=== PATIENT | female | born 1980 | race Caucasian/White ===

== ENCOUNTER 2021-03-26 08:58 | Emergency (ER) | payer MEDICARE ==
--- NOTE | 2021-03-26 09:02 | ERPHSYRPT ---
- History of Present Illness Time Seen by Provider: 03/26/21 09:02 Source: patient Exam Limitations: no limitations Physician History: This is a 41-year-old white female who gets UTIs frequently. She presents with 1 to 2-day history of worsening dysuria. She has had no nausea vomiting or diarrhea. She had no fevers. She denies chest pain and she denies shortness of breath. Timing/Duration: day(s) (1-2) Activites at Onset: none Quality: burning Onset Location: suprapubic Pain Radiation: none Severity of Pain-Max: mild Severity of Pain-Current: mild Prior abdominal problems: none Sexual intercourse history: non-contributory Allergies/Adverse Reactions: latex Allergy (Verified 03/26/21 09:19) Sulfa (Sulfonamide Antibiotics) Allergy (Verified 03/26/21 09:19) sulfamethoxazole [From Bactrim] Allergy (Verified 03/26/21 09:18) trimethoprim [From Bactrim] Allergy (Verified 03/26/21 09:18) Home Medications: Gabapentin 400 mg [Neurontin 400 MG] 2 ea DAILY 03/26/21 [History] Losartan Potassium 50 mg [Cozaar 50 MG] 50 mg PO DAILY 03/26/21 [History] Metformin HCl 500 mg [Glucophage 500 MG] 2 ea DAILY 03/26/21 [History] Travel Risk - International Travel Have you traveled outside of the country in past 3 weeks: No - Coronavirus Screening Are you exhibiting any of the following symptoms?: No Close contact with a COVID-19 positive Pt in past 14-21 Days: No - Review of Systems Constitutional: No Symptoms Eyes: No Symptoms Ears, Nose, & Throat: No Symptoms Respiratory: No Symptoms Cardiac: No Symptoms Abdominal/Gastrointestinal: No Symptoms Genitourinary Symptoms: Dysuria Musculoskeletal: No Symptoms Skin: No Symptoms Neurological: No Symptoms Psychological: No Symptoms Endocrine: No Symptoms Hematologic/Lymphatic: No Symptoms Immunological/Allergic: No Symptoms All Other Systems: Reviewed and Negative - Past Medical History Pertinent Past Medical History: Yes - Past Surgical History Past Surgical History: Yes - Nursing Vital Signs Nursing Vital Signs: Initial Vital Signs Temperature 97.2 F 03/26/21 09:13 Pulse Rate 57 L 03/26/21 09:13 Respiratory Rate 18 03/26/21 09:13 Blood Pressure 134/74 03/26/21 09:13 O2 Sat by Pulse Oximetry 100 03/26/21 09:13 Pain Scale Pain Intensity 4 - Physical Exam General Appearance: no apparent distress, alert, anxiety Eye Exam: PERRL/EOMI, eyes nml inspection Ears, Nose, Throat Exam: normal ENT inspection, moist mucous membranes Neck Exam: normal inspection, non-tender, supple, full range of motion Respiratory Exam: normal breath sounds, lungs clear, airway intact, No chest tenderness, No respiratory distress Cardiovascular Exam: regular rate/rhythm, normal heart sounds, normal peripheral pulses Gastrointestinal/Abdomen Exam: soft, normal bowel sounds, No tenderness Pelvic Exam: not done Rectal Exam: not done Back Exam: normal inspection, normal range of motion, No CVA tenderness, No vertebral tenderness Extremity Exam: normal inspection, normal range of motion, pelvis stable Neurologic Exam: alert, oriented x 3, cooperative, 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 as tested, normal mood/affect, nml cerebellar function, nml station & gait, sensation nml Skin Exam: normal color, warm, dry Lymphatic Exam: No adenopathy SpO2 Interpretation: normal O2 Delivery: Room Air - Course Nursing assessment & vital signs reviewed: Yes Ordered Tests: Active Orders 24 hr Category Date Time Status CULTURE,URINE Stat Lab 03/26/21 09:13 Received HCG,QUALITATIVE URINE Stat Lab 03/26/21 09:13 Completed UA W/RFX UR CULTURE Stat Lab 03/26/21 09:13 Completed Lab/Rad Data: Laboratory Results 03/26/21 03/26/21 Range/Units 09:13 09:13 Urine Color JACKIE (YELLOW) Urine Appearance CLOUDY (CLEAR) Urine pH 6.0 (5-6) Ur Specific [place] 1.042 (1.005-1.025) Urine Protein 100 (Negative) Urine Ketones NEGATIVE (NEGATIVE) Urine Blood SMALL (0-5) Lawrence/ul Urine Nitrite POSITIVE (NEGATIVE) Urine Bilirubin NEGATIVE (NEGATIVE) Urine Urobilinogen 2 (0-1) mg/dL Ur Leukocyte Esterase NEGATIVE (NEGATIVE) Urine WBC (Auto) 6-10 (0-5) /HPF Urine RBC (Auto) 16-25 (0-2) /HPF U Epithel Cells (Auto) RARE (FEW) /HPF Urine Bacteria (Auto) MANY (NEGATIVE) /HPF Urine Mucus (Auto) SLIGHT (NEGATIVE) /HPF Urine Culture Reflexed YES (NO) Urine Glucose >=500 (NEGATIVE) mg/dL Urine HCG, Qual NEGATIVE (Negative) - Progress Progress: unchanged Air Movement: good Blood Culture(s) Obtained: No Antibiotics given: No Counseled pt/family regarding: lab results, diagnosis, need for follow-up - Departure Departure Disposition: Home Clinical Impression: UTI (urinary tract infection) Condition: Stable Critical Care Time: No Referrals: DOCTOR,NO FAMILY [Primary Care Provider] - Additional Instructions: Drink plenty of fluids. Use Tylenol and ibuprofen for pain control and fever control if you are not allergic to that medication. Follow-up with your primary care physician for persistent symptoms. Prescriptions: Ciprofloxacin [Cipro 500 MG] 500 mg PO BID #14 tablet
[2021-03-26 10:13] LABS: Appearance CLOUDY (CLEAR); Bacteria MANY /HPF (NEGATIVE); Bilirubin NEGATIVE (NEGATIVE); Blood SMALL Ery/ul (0-5); Epithelial Cells RARE /HPF (FEW); Glucose >=500 mg/dL (NEGATIVE); Ketones NEGATIVE (NEGATIVE); Leukocyte Esterase NEGATIVE (NEGATIVE); Mucus SLIGHT /HPF (NEGATIVE); Nitrite POSITIVE (NEGATIVE); Protein,Urine Dip 100 (Negative); Specific Gravity 1.042 (1.005-1.025); Urobilinogen 2 mg/dL (0-1)
[2021-03-26 10:47] VITALS: BP 143/83; PULSE 52; O2SAT 98
== END 2021-03-26 10:51 | disposition home or self-care (01) ==
LOC: ED 08:58
DX: N39.0 Urinary tract infection, site not specified (principal)
CPT/HCPCS: 81001; 84703; 87086; 99283

== ENCOUNTER 2022-02-23 13:54 | Emergency (ER) | payer MEDICARE ==
[2022-02-23] MEDS ORDERED: Zofran 4 MG/2 ML VIAL ONE (14:21)
[2022-02-23] MEDS ORDERED: Hydromorphone 1 mg/ml Injection ONE ×2 (14:21→15:33)
[2022-02-23] MEDS ORDERED: Sodium Chloride 0.9% 1000 ML 1,000 ML ONE (14:21)
[2022-02-23] MEDS: Hydromorphone 1 mg/ml Injection IV ONE ×2 (14:23→15:34)
[2022-02-23] MEDS: Sodium Chloride 0.9% 1000 ML 1,000 ML IV STA (14:23)
[2022-02-23] MEDS: Zofran 4 MG/2 ML VIAL IV ONE (14:23)
[2022-02-23 14:55] LABS: Bacteria RARE /HPF (NEGATIVE); Epithelial Cells RARE /HPF (FEW); Mucus SLIGHT /HPF (NEGATIVE)
[2022-02-23 14:56] LABS: Appearance CLEAR (CLEAR); Bilirubin NEGATIVE (NEGATIVE); Glucose 100 mg/dL (NEGATIVE); Ketones NEGATIVE (NEGATIVE); Nitrite NEGATIVE (NEGATIVE); Protein,Urine Dip 30 (Negative); RBC TRACE-LYSED Ery/ul (0-5); Specific Gravity >=1.030 (1.005-1.025); Urine Cultured Indicated? YES; Urobilinogen 1 mg/dL (0-1)
[2022-02-23 14:57] LABS: Dipstick done @ ? MAIN LAB
[2022-02-23 15:12] LABS: Amphetamine,Urine NEGATIVE (NEGATIVE); Barbiturate,Urine NEGATIVE (NEGATIVE); Benzodiazepine,Urine NEGATIVE (NEGATIVE); Cocaine,Urine NEGATIVE (NEGATIVE); Methadone,Urine NEGATIVE (NEGATIVE); Opiate,Urine NEGATIVE (NEGATIVE); PCP,Urine NEGATIVE (NEGATIVE); THC,Urine POSITIVE (NEGATIVE)
--- NOTE | 2022-02-23 15:24 | ERPHSYRPT ---
- History of Present Illness Time Seen by Provider: 02/23/22 14:10 Historian: patient Exam Limitations: no limitations Patient Subjective Stated Complaint: PT states "I have an ostomy and nothing has come out of in in the past two weeks." Triage Nursing Assessment: Pt presented alert and oriented X3, skin pwd Pt ambulates with an upright gait. PT uses cane. PT has ostomy. Pt in no apparent respiratory distress. Physician History: Patient is a 41-year-old white female who presents with a concern about the malfunction of her colostomy. She has a colostomy because as she says "premature " apparently its been a lifelong presents. She has had 1 episode at least in the past where she got bowel obstruction and was hospitalized for a prolonged period. Her PCP was seen today they sent her in because they could not appreciate any bowel sounds she seemed somewhat distended and there been no apparent output from the colostomy for 2 weeks. She has had some nausea and vomiting and she has abdominal pain. Patient recently moved to the area. Timing/Duration: week(s) (2) Activities at Onset: none Quality: aching, cramping Abdominal Pain Onset Location: generalized abdomen Severity of Pain-Max: moderate Severity of Pain-Current: moderate Modifying Factors: Improves With: movement, palpation Associated Symptoms: nausea, vomiting Previous symptoms: same symptoms as today Allergies/Adverse Reactions: latex Allergy (Verified 03/26/21 09:19) Sulfa (Sulfonamide Antibiotics) Allergy (Verified 03/26/21 09:19) sulfamethoxazole [From Bactrim] Allergy (Verified 03/26/21 09:18) trimethoprim [From Bactrim] Allergy (Verified 03/26/21 09:18) Home Medications: Gabapentin [Neurontin ] 2 ea PO DAILY 03/26/21 [History] Losartan Potassium 50 mg [Cozaar 50 MG] 50 mg PO DAILY 03/26/21 [History] Metformin HCl 500 mg [Glucophage 500 MG] 2 ea PO DAILY 03/26/21 [History] Hydrochlorothiazide 25 mg [hydroDIURIL 25 MG] 25 mg PO DAILY 02/23/22 [History] Insulin Glargine,Hum.rec.anlog [Lantus] 100 unit SQ 02/23/22 [History] Ondansetron [Ondansetron Odt ] 4 mg PO DAILY PRN 02/23/22 [History] Hx Tetanus, Diphtheria Vaccination/Date Given: No Hx Influenza Vaccination/Date Given: Yes Hx Pneumococcal Vaccination/Date Given: No Immunizations Up to Date: Yes Travel Risk - International Travel Have you traveled outside of the country in past 3 weeks: No - Coronavirus Screening Are you exhibiting any of the following symptoms?: No Close contact with a COVID-19 positive Pt in past 14-21 Days: No - Vaccine Status Have you recieved a Covid-19 vaccination: Yes 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: [employer] - Review of Systems Constitutional: No Fever, No Chills Eyes: No Symptoms Ears, Nose, & Throat: No Symptoms Respiratory: No Cough, No Dyspnea Cardiac: No Chest Pain, No Edema, No Syncope Abdominal/Gastrointestinal: Abdominal Pain, Nausea, Vomiting, No Diarrhea Genitourinary Symptoms: No Dysuria Musculoskeletal: No Back Pain, No Neck Pain Skin: No Rash Neurological: No Dizziness, No Focal Weakness, No Sensory Changes Psychological: No Symptoms Endocrine: No Symptoms All Other Systems: Reviewed and Negative - Past Medical History Pertinent Past Medical History: Yes Neurological History: Peripheral Neuropathy Cardiac History: Hypertension Endocrine Medical History: Diabetes Type II History: Other Female Reproductive Disorders: Ovarian Cancer Other Medical History: colotomy from - Past Surgical History Past Surgical History: Yes Gastrointestinal: Other Female Surgical History: Hysterectomy Other Surgical History: colostomy - Social History Smoking Status: Current every day smoker Exposure to second hand smoke: Yes Drug Use: marijuana Patient Lives Alone: No - Female History Hx Last Menstrual Period: partial hysterectomy Hx Now: No - Nursing Vital Signs Nursing Vital Signs: Initial Vital Signs Temperature 97.1 F 02/23/22 14:00 Pulse Rate 69 02/23/22 14:00 Respiratory Rate 20 02/23/22 14:00 Blood Pressure 164/103 02/23/22 14:00 O2 Sat by Pulse Oximetry 96 02/23/22 14:00 Pain Scale Pain Intensity 4 - Physical Exam General Appearance: moderate distress, alert Eye Exam: PERRL/EOMI, eyes nml inspection Ears, Nose, Throat Exam: normal ENT inspection, pharynx normal, moist mucous membranes Neck Exam: normal inspection, non-tender, supple, full range of motion Respiratory Exam: normal breath sounds, lungs clear, No respiratory distress Cardiovascular Exam: regular rate/rhythm, normal heart sounds Gastrointestinal/Abdomen Exam: tenderness, guarding, rebound, other (Colostomy with no apparent stool in the bag), No soft, No normal bowel sounds, No mass Pelvic Exam: not done Rectal Exam: deferred Back Exam: normal inspection, normal range of motion, No CVA tenderness, No vertebral tenderness Extremity Exam: normal inspection, normal range of motion, pelvis stable Neurologic Exam: alert, oriented x 3, cooperative, normal mood/affect, nml cerebellar function, sensation nml, No motor deficits Skin Exam: normal color, warm, dry SpO2 Interpretation: normal SpO2: 96 O2 Delivery: Room Air - Course Nursing assessment & vital signs reviewed: Yes - CT Exams Abdomen/Pelvis CT Interpretation: Other (CT scan of the abdomen and pelvis shows some moderate fecal stasis otherwise the CT was negative.) Ordered Tests: Active Orders 24 hr Category Date Time Status IV Insertion STAT Care 02/23/22 14:12 Active ABDOMEN AND PELVIS W CONTRAST [CT] Stat Exams 02/23/22 14:13 Completed AMYLASE Stat Lab 02/23/22 15:19 Completed CBC W DIFF Stat Lab 02/23/22 15:19 Completed CMP Stat Lab 02/23/22 15:19 Completed CULTURE,URINE Stat Lab 02/23/22 Received LIPASE Stat Lab 02/23/22 15:19 Completed Lactic Acid Stat Lab 02/23/22 14:12 Completed Lactic Acid Stat Lab 02/23/22 16:28 Received UA W/RFX CULTURE Stat Lab 02/23/22 Completed Urine Triage Profile Stat Lab 02/23/22 14:41 Completed Medication Summary Discontinued Medications Generic Name Dose Route Start Last Admin Trade Name Rafael PRN Reason Stop Dose Admin Hydromorphone HCl 1 mg 02/23/22 14:12 02/23/22 14:23 Hydromorphone 1 Mg/1ml Inj 1 Mg/Ml Syringe IV 02/23/22 14:13 1 mg STAT ONE Administration Hydromorphone HCl Confirm 02/23/22 14:21 Hydromorphone 1 Mg/1ml Inj 1 Mg/Ml Syringe Administered 02/23/22 14:22 Dose 1 mg .ROUTE .STK-MED ONE Hydromorphone HCl 1 mg 02/23/22 15:33 02/23/22 15:34 Hydromorphone 1 Mg/1ml Inj 1 Mg/Ml Syringe IV 02/23/22 15:34 1 mg STAT ONE Administration Hydromorphone HCl Confirm 02/23/22 15:33 Hydromorphone 1 Mg/1ml Inj 1 Mg/Ml Syringe Administered 02/23/22 15:34 Dose 1 mg .ROUTE .STK-MED ONE Sodium Chloride 1,000 mls @ 999 mls/hr 02/23/22 14:12 02/23/22 15:29 Sodium Chloride 0.9% 1000 Ml IV 02/23/22 15:12 Infused .Q1H1M STA Infusion Sodium Chloride Confirm 02/23/22 14:21 Sodium Chloride 0.9% 1000 Ml Administered 02/23/22 14:22 Dose 1,000 mls @ ud .ROUTE .STK-MED ONE Ondansetron HCl 4 mg 02/23/22 14:12 02/23/22 14:23 Ondansetron Hcl 4 Mg/2 Ml Vial IV 02/23/22 14:13 4 mg STAT ONE Administration Ondansetron HCl Confirm 02/23/22 14:21 Ondansetron Hcl 4 Mg/2 Ml Vial Administered 02/23/22 14:22 Dose 4 mg .ROUTE .STK-MED ONE Lab/Rad Data: Laboratory Result Diagrams 02/23/22 15:19 02/23/22 15:19 Laboratory Results 02/23/22 02/23/22 02/23/22 Range/Units Unknown 15:19 15:19 WBC 10.6 H (4.0-10.5) x10^3/uL RBC 4.77 (4.1-5.4) x10^6/uL Hgb 14.1 (12.0-16.0) g/dL Hct 42.4 (35-47) % MCV 88.9 (78-100) fL MCH 29.6 (26-32) pg MCHC 33.3 (32-36) g/dL RDW 12.7 (11.5-14.0) % Plt Count 248 (150-450) x10^3/uL MPV 9.7 (7.5-11.0) fL Gran % 66.5 H (36.0-66.0) % Immature Gran % (Auto) 0.2 (0.00-0.4) % Nucleat RBC Rel Count 0.0 (0.00-0.1) % Eos # (Auto) 0.15 (0-0.5) x10^3/uL Immature Gran # (Auto) 0.02 (0.00-0.03) x10^3u/L Absolute Lymphs (auto) 2.75 (1.0-4.6) x10^3/uL Absolute Monos (auto) 0.58 (0.0-1.3) x10^3/uL Absolute Nucleated RBC 0.00 (0.00-0.01) x10^3u/L Lymphocytes % 25.9 (24.0-44.0) % Monocytes % 5.5 (0.0-12.0) % Eosinophils % 1.4 (0.00-5.0) % Basophils % 0.5 (0.0-0.4) % Absolute Granulocytes 7.08 H (1.4-6.9) x10^3/uL Basophils # 0.05 (0-0.4) x10^3/uL Sodium 142 (137-145) mmol/L Potassium 3.6 (3.5-5.1) mmol/L Chloride 107 (98-107) mmol/L Carbon Dioxide 24 (22-30) mmol/L Anion Gap 14.0 (5-15) MEQ/L BUN 14 (7-17) mg/dL Creatinine 0.55 (0.52-1.04) mg/dL Estimated GFR > 60.0 ML/MIN Glucose 145 H (74-106) mg/dL Lactic Acid (0.4-2.0) Calcium 9.3 (8.4-10.2) mg/dL Total Bilirubin 0.90 (0.2-1.3) mg/dL AST 20 (14-36) U/L ALT 20 (0-35) U/L Alkaline Phosphatase 96 (38-126) U/L Serum Total Protein 7.0 (6.3-8.2) g/dL Albumin 4.0 (3.5-5.0) g/dL Amylase 86 (30-110) U/L Lipase 78 (23-300) U/L Urinalys Dipstick Clnc MAIN LAB Urine Color YELLOW (YELLOW) Urine Appearance CLEAR (CLEAR) Urine pH 6.0 (5-6) Ur Specific [place] >=1.030 (1.005-1.025) POC Urine Protein Conf 30 (Negative) Urine Ketones NEGATIVE (NEGATIVE) Urine Nitrite NEGATIVE (NEGATIVE) Urine Bilirubin NEGATIVE (NEGATIVE) Urine Urobilinogen 1 (0-1) mg/dL Urine Leukocytes NEGATIVE (NEGATIVE) Urine WBC (Auto) 3-5 (0-5) /HPF Urine RBC (Auto) 6-10 (0-2) /HPF U Epithel Cells (Auto) RARE (FEW) /HPF Urine Bacteria (Auto) RARE (NEGATIVE) /HPF Urine RBC TRACE-LYSED (0-5) Lawrence/ul Urine Mucus (Auto) SLIGHT (NEGATIVE) /HPF Ur Culture Indicated? YES Urine Glucose 100 (NEGATIVE) mg/dL Urine Opiates Level (NEGATIVE) Ur Methadone (NEGATIVE) Urine Barbiturates (NEGATIVE) Ur Phencyclidine (PCP) (NEGATIVE) Urine Amphetamine (NEGATIVE) U Benzodiazepine Level (NEGATIVE) Urine Cocaine (NEGATIVE) Urine Marijuana (THC) (NEGATIVE) 02/23/22 02/23/22 Range/Units 14:41 14:12 WBC (4.0-10.5) x10^3/uL RBC (4.1-5.4) x10^6/uL Hgb (12.0-16.0) g/dL Hct (35-47) % MCV (78-100) fL MCH (26-32) pg MCHC (32-36) g/dL RDW (11.5-14.0) % Plt Count (150-450) x10^3/uL MPV (7.5-11.0) fL Gran % (36.0-66.0) % Immature Gran % (Auto) (0.00-0.4) % Nucleat RBC Rel Count (0.00-0.1) % Eos # (Auto) (0-0.5) x10^3/uL Immature Gran # (Auto) (0.00-0.03) x10^3u/L Absolute Lymphs (auto) (1.0-4.6) x10^3/uL Absolute Monos (auto) (0.0-1.3) x10^3/uL Absolute Nucleated RBC (0.00-0.01) x10^3u/L Lymphocytes % (24.0-44.0) % Monocytes % (0.0-12.0) % Eosinophils % (0.00-5.0) % Basophils % (0.0-0.4) % Absolute Granulocytes (1.4-6.9) x10^3/uL Basophils # (0-0.4) x10^3/uL Sodium (137-145) mmol/L Potassium (3.5-5.1) mmol/L Chloride (98-107) mmol/L Carbon Dioxide (22-30) mmol/L Anion Gap (5-15) MEQ/L BUN (7-17) mg/dL Creatinine (0.52-1.04) mg/dL Estimated GFR ML/MIN Glucose (74-106) mg/dL Lactic Acid 3.2 H (0.4-2.0) Calcium (8.4-10.2) mg/dL Total Bilirubin (0.2-1.3) mg/dL AST (14-36) U/L ALT (0-35) U/L Alkaline Phosphatase (38-126) U/L Serum Total Protein (6.3-8.2) g/dL Albumin (3.5-5.0) g/dL Amylase (30-110) U/L Lipase (23-300) U/L Urinalys Dipstick Clnc Urine Color (YELLOW) Urine Appearance (CLEAR) Urine pH (5-6) Ur Specific [place] (1.005-1.025) POC Urine Protein Conf (Negative) Urine Ketones (NEGATIVE) Urine Nitrite (NEGATIVE) Urine Bilirubin (NEGATIVE) Urine Urobilinogen (0-1) mg/dL Urine Leukocytes (NEGATIVE) Urine WBC (Auto) (0-5) /HPF Urine RBC (Auto) (0-2) /HPF U Epithel Cells (Auto) (FEW) /HPF Urine Bacteria (Auto) (NEGATIVE) /HPF Urine RBC (0-5) Lawrence/ul Urine Mucus (Auto) (NEGATIVE) /HPF Ur Culture Indicated? Urine Glucose (NEGATIVE) mg/dL Urine Opiates Level NEGATIVE (NEGATIVE) Ur Methadone NEGATIVE (NEGATIVE) Urine Barbiturates NEGATIVE (NEGATIVE) Ur Phencyclidine (PCP) NEGATIVE (NEGATIVE) Urine Amphetamine NEGATIVE (NEGATIVE) U Benzodiazepine Level NEGATIVE (NEGATIVE) Urine Cocaine NEGATIVE (NEGATIVE) Urine Marijuana (THC) POSITIVE (NEGATIVE) - Progress Progress: unchanged Discussed with : Melissa (Findings were discussed with Dr. Rodriguez and we will place her in the hospital and start her on GoLytely and see if we can get her colostomy functioning again.) - Departure Departure Disposition: Observation Clinical Impression: Constipation Condition: Fair Critical Care Time: No Referrals: HANY RODRIGUEZ MD [Primary Care Provider] - Follow up/PCP as directed
[2022-02-23 15:27] LABS: Absolute Neutrophil Ct (ANC) 7.08 x10^3/uL (1.4-6.9); Basophil (Absolute #) 0.05 x10^3/uL (0-0.4); Eosinophil % 1.4 % (0.00-5.0); Eosinophil (Absolute #) 0.15 x10^3/uL (0-0.5); Hematocrit 42.4 % (35-47); Hemoglobin 14.1 g/dL (12.0-16.0); Lymphocyte (Absolute #) 2.75 x10^3/uL (1.0-4.6); Lymphocytes % 25.9 % (24.0-44.0); Mean Cell Volume 88.9 fL (78-100); Mean Corpuscular Hemoglobin 29.6 pg (26-32); Mean Corpuscular Hgb Concent. 33.3 g/dL (32-36); Mean Platelet Volume 9.7 fL (7.5-11.0); Monocyte (Absolute #) 0.58 x10^3/uL (0.0-1.3); Monocytes % 5.5 % (0.0-12.0); Neutrophil % 66.5 % (36.0-66.0); Platelet Count 248 x10^3/uL (150-450); Red Blood Count 4.77 x10^6/uL (4.1-5.4); Red Cell Distribution Width 12.7 % (11.5-14.0); White Blood Count 10.6 x10^3/uL (4.0-10.5)
[2022-02-23 15:43] LABS: ALKALINE PHOSPHATASE 96 U/L (38-126); AMYLASE 86 U/L (30-110); BLOOD UREA NITROGEN 14 mg/dL (7-17); CHLORIDE 107 mmol/L (98-107); Calcium 9.3 mg/dL (8.4-10.2); Carbon Dioxide 24 mmol/L (22-30); Creatinine 1 0.55 mg/dL (0.52-1.04); EST GLOMERULAR FILTRATION RATE > 60.0 ML/MIN; Glucose 145 mg/dL (74-106); LIPASE 78 U/L (23-300); Potassium 3.6 mmol/L (3.5-5.1); SGOT/AST 20 U/L (14-36); SGPT/ALT 20 U/L (0-35); SODIUM 142 mmol/L (137-145)
--- NOTE | 2022-02-23 16:18 | XRAY ---
Indication: Abdomen pain and bloating. Multiple contiguous axial images obtained through the abdomen and pelvis using 80 cc Isovue 370 contrast. Comparison: None Lung bases demonstrates pulmonary emphysema. No infiltrate or effusion. Heart not enlarged. Stomach moderately distended with food/fluid. Noncontrasted stomach and bowel loops appear nonobstructed. There has been left hemicolectomy with left lower quadrant colostomy. Remaining colon demonstrates moderate scattered fecal debris. Previous hysterectomy. No free fluid/air. A few splenic calcific granulomas. Remaining liver, gallbladder, pancreas, spleen, adrenal glands, kidneys, ureters, bladder, and aorta are unremarkable. No pathologic retroperitoneal lymphadenopathy. Osseous structures intact with minimal degenerative changes throughout the spine. Impression: 1. Left hemicolectomy with intact left lower quadrant colostomy. Moderate fecal stasis. 2. Incidental pulmonary emphysema and old granulomatous disease. 3. Remaining CT abdomen/pelvis with contrast exam is negative.
[2022-02-23] MEDS ORDERED: Hydromorphone 1 mg/ml Injection IV PRN (16:49)
[2022-02-23] MEDS ORDERED: Zofran 4 MG/2 ML VIAL IV PRN (16:49)
[2022-02-23] MEDS ORDERED: Sodium Chloride 0.9% 1000 ML 1,000 ML IV SCH (17:00)
[2022-02-23 17:31] VITALS: BP 138/102; PULSE 56; O2SAT 99
== END 2022-02-23 17:40 | disposition left against medical advice (07) ==
LOC: ED 13:54
DX: K59.00 Constipation, unspecified (principal); Z93.3 Colostomy status; R11.2 Nausea with vomiting, unspecified; R10.84 Generalized abdominal pain; I10 Essential (primary) hypertension; E11.42 Type 2 diabetes mellitus with diabetic polyneuropathy; Z72.0 Tobacco use; Z79.4 Long term (current) use of insulin; Z79.84 Long term (current) use of oral hypoglycemic drugs; Z79.899 Other long term (current) drug therapy
CPT/HCPCS: 36415; 74177; 80053; 80307; 81015; 82150; 83605; 83690; 85025; 87086; 96374; 96375; 96376; 99284; J1170; J2405

== ENCOUNTER 2022-02-27 10:14 | Emergency (ER) | payer MEDICARE ==
[2022-02-27 10:28] VITALS: BP 161/85; PULSE 75; O2SAT 99
--- NOTE | 2022-02-27 11:01 | ERPHSYRPT ---
- History of Present Illness Time Seen by Provider: 02/27/22 10:25 Historian: patient, EMS Patient Subjective Stated Complaint: "my jung are awake" Triage Nursing Assessment: pt to ED by EMS stating "my bowels are alive again." reports she was here recently and went to [facility] where she was admitted and told her bowels were not active and DC home on hospice. pt reports 2/10 abd pain. has not yet had a BM. hx colostomy since . 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 She was in the ER last Monday or 5 days ago and at that time was complaining of no output through her colostomy. We did a CT scan which showed a moderate fecal burden we had plan to admit her for laxative therapy and fluids and she refused became very angry when we requested a COVID swab and signed out AMA she reports today that she went directly from here to [facility] she was in the ER there they wish to admit her as well and she left. She has been using prune juice and MiraLAX with some success which started this morning. She has had some stool output she has had some urine output. She states that it is a miracle that her bowels have awakened and she will live. Timing/Duration: week(s) (Several) Activities at Onset: none Quality: cramping, fullness, throbbing Abdominal Pain Onset Location: generalized abdomen Pain Radiation: no radiation Severity of Pain-Max: moderate Severity of Pain-Current: moderate Modifying Factors: Improves With: defecating, urinating Associated Symptoms: diaphoresis, nausea Previous symptoms: same symptoms as today Allergies/Adverse Reactions: ketorolac [From Toradol] Allergy (Verified 02/27/22 10:17) latex Allergy (Verified 03/26/21 09:19) Sulfa (Sulfonamide Antibiotics) Allergy (Verified 03/26/21 09:19) sulfamethoxazole [From Bactrim] Allergy (Verified 03/26/21 09:18) trimethoprim [From Bactrim] Allergy (Verified 03/26/21 09:18) Home Medications: Gabapentin [Neurontin ] 2 ea PO DAILY 03/26/21 [History] Losartan Potassium 50 mg [Cozaar 50 MG] 50 mg PO DAILY 03/26/21 [History] Metformin HCl 500 mg [Glucophage 500 MG] 2 ea PO BID 03/26/21 [History] Hydrochlorothiazide 25 mg [hydroDIURIL 25 MG] 25 mg PO DAILY 02/23/22 [History] Insulin Glargine,Hum.rec.anlog [Lantus] 10 unit SQ DAILY 02/23/22 [History] Ondansetron [Ondansetron Odt ] 4 mg PO DAILY PRN 02/23/22 [History] Atorvastatin Calcium [Lipitor 40Mg] 40 mg PO DAILY 02/27/22 [History] Hx Tetanus, Diphtheria Vaccination/Date Given: No Hx Influenza Vaccination/Date Given: Yes Hx Pneumococcal Vaccination/Date Given: No Immunizations Up to Date: No Travel Risk - International Travel Have you traveled outside of the country in past 3 weeks: No - Coronavirus Screening Are you exhibiting any of the following symptoms?: No Close contact with a COVID-19 positive Pt in past 14-21 Days: No - Vaccine Status Have you recieved a Covid-19 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: 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[employer] - Review of Systems Constitutional: No Fever, No Chills Eyes: No Symptoms Ears, Nose, & Throat: No Symptoms Respiratory: No Cough, No Dyspnea Cardiac: No Chest Pain, No Edema, No Syncope Abdominal/Gastrointestinal: Constipation, No Abdominal Pain, No Nausea, No Vomiting, No Diarrhea Genitourinary Symptoms: No Dysuria Musculoskeletal: No Back Pain, No Neck Pain Skin: No Rash Neurological: No Dizziness, No Focal Weakness, No Sensory Changes Psychological: No Symptoms Endocrine: No Symptoms All Other Systems: Reviewed and Negative - Past Medical History Pertinent Past Medical History: Yes Neurological History: Peripheral Neuropathy ENT History: No Pertinent History Cardiac History: Hypertension Respiratory History: No Pertinent History Endocrine Medical History: Diabetes Type II Musculoskeletal History: No Pertinent History GI Medical History: No Pertinent History History: Other Psycho-Social History: No Pertinent History Female Reproductive Disorders: Ovarian Cancer Other Medical History: colostomy from - Past Surgical History Past Surgical History: Yes Gastrointestinal: Other Female Surgical History: Hysterectomy Other Surgical History: colostomy - Social History Smoking Status: Current every day smoker How long have you smoked: since 14yo Exposure to second hand smoke: Yes Drug Use: none Patient Lives Alone: No - Female History Hx Now: No - Nursing Vital Signs Nursing Vital Signs: Initial Vital Signs Temperature 97.9 F 02/27/22 10:20 Pulse Rate 75 02/27/22 10:20 Respiratory Rate 20 02/27/22 10:20 Blood Pressure 161/85 02/27/22 10:20 O2 Sat by Pulse Oximetry 99 02/27/22 10:20 Pain Scale Pain Intensity 2 - Physical Exam General Appearance: no apparent distress, alert Eye Exam: PERRL/EOMI, eyes nml inspection Ears, Nose, Throat Exam: normal ENT inspection, pharynx normal, moist mucous membranes Neck Exam: normal inspection, non-tender, supple, full range of motion Respiratory Exam: normal breath sounds, lungs clear, No respiratory distress Cardiovascular Exam: regular rate/rhythm, normal heart sounds Gastrointestinal/Abdomen Exam: soft, normal bowel sounds, tenderness, other (Patient has a functioning colostomy), No mass, No guarding, No rebound Pelvic Exam: not done Rectal Exam: deferred Back Exam: normal inspection, normal range of motion, No CVA tenderness, No vertebral tenderness Extremity Exam: normal inspection, normal range of motion, pelvis stable Neurologic Exam: alert, oriented x 3, cooperative, normal mood/affect, nml cerebellar function, sensation nml, No motor deficits Skin Exam: normal color, warm, dry SpO2 Interpretation: normal SpO2: 99 O2 Delivery: Room Air - Course Nursing assessment & vital signs reviewed: Yes - Radiology Exams Abdomen X-ray Interpretation: Interpreted by me, Negative (There is no sign of obstruction and no free air. Incidentally is noted some moderate stool burden.) Ordered Tests: Active Orders 24 hr Category Date Time Status OBSTR/ACUTE ABDOMEN SERIES Stat Exams 02/27/22 10:46 Taken - Progress Progress: improved - Departure Departure Disposition: Home Clinical Impression: Constipation Condition: Stable Critical Care Time: No Referrals: HANY RODRIGUEZ MD [Primary Care Provider] - Follow up/PCP as directed Prescriptions: Polyethylene Glycol 3350 17 gm [Miralax Powder 17GM PACKET] 17 gm PO TID 30 Days #100 packet
--- NOTE | 2022-02-27 21:03 | XRAY ---
Indication: "Bowel not working." Comparison: None. There is CT abdomen/pelvis 4 days ago. 2 view abdomen nonacute and nonobstructed again with moderate scattered colonic fecal debris and left lower quadrant colostomy. Solid organs and osseous structures unremarkable. Single frontal chest clear again with a few incidental calcified granulomas. Heart not enlarged. Bony thorax intact. Impression: Fecal stasis. Nonacute one view chest with old granulomatous disease.
== END 2022-02-27 11:16 | disposition home or self-care (01) ==
LOC: ED 10:14
DX: K59.00 Constipation, unspecified (principal); Z93.3 Colostomy status; R10.84 Generalized abdominal pain; I10 Essential (primary) hypertension; E11.42 Type 2 diabetes mellitus with diabetic polyneuropathy; Z72.0 Tobacco use; Z79.4 Long term (current) use of insulin; Z79.84 Long term (current) use of oral hypoglycemic drugs; Z79.899 Other long term (current) drug therapy
CPT/HCPCS: 74022; 99282

== ENCOUNTER 2022-08-12 15:23 | Emergency (ER) | payer MEDICARE ==
--- NOTE | 2022-08-12 15:52 | ERPHSYRPT ---
- History of Present Illness Time Seen by Provider: 08/12/22 15:52 Source: patient Exam Limitations: no limitations Physician History: This is a 42-year-old white female patient who is a smoker and was exposed to individuals with strep throat recently. A few days prior to that patient states that she drank 8 shots of cinnamon liquor. She does not have shortness of breath. She does not have chest pain. She is not having any abdominal pain, nausea, vomiting or diarrhea. Her main complaints are cough and sore throat Timing/Duration: day(s) (Couple of days) Cough Quality/Degree: mild, dry cough Possible Cause: unknown cause Modifying Factors: Improves With: coughing Associated Symptoms: cough, sore throat, No chest pain/soreness Allergies/Adverse Reactions: ketorolac [From Toradol] Allergy (Verified 02/27/22 10:17) latex Allergy (Verified 03/26/21 09:19) Sulfa (Sulfonamide Antibiotics) Allergy (Verified 03/26/21 09:19) sulfamethoxazole [From Bactrim] Allergy (Verified 03/26/21 09:18) trimethoprim [From Bactrim] Allergy (Verified 03/26/21 09:18) Home Medications: Gabapentin [Neurontin ] 2 ea PO DAILY 03/26/21 [History] Losartan Potassium 50 mg [Cozaar 50 MG] 50 mg PO DAILY 03/26/21 [History] Metformin HCl 500 mg [Glucophage 500 MG] 2 ea PO BID 03/26/21 [History] Hydrochlorothiazide 25 mg [hydroDIURIL 25 MG] 25 mg PO DAILY 02/23/22 [History] Insulin Glargine,Hum.rec.anlog [Lantus] 10 unit SQ DAILY 02/23/22 [History] Ondansetron [Ondansetron Odt ] 4 mg PO DAILY PRN 02/23/22 [History] Atorvastatin Calcium [Lipitor 40Mg] 40 mg PO DAILY 02/27/22 [History] Hx Tetanus, Diphtheria Vaccination/Date Given: No Hx Influenza Vaccination/Date Given: Yes Hx Pneumococcal Vaccination/Date Given: No Travel Risk - International Travel Have you traveled outside of the country in past 3 weeks: No - Coronavirus Screening Are you exhibiting any of the following symptoms?: Yes Symptoms: Cough: New Onset Close contact with a COVID-19 positive Pt in past 14-21 Days: Yes - Vaccine Status Have you recieved a Covid-19 vaccination: Yes [employer]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[employer] - Review of Systems Constitutional: No Symptoms Eyes: No Symptoms Ears, Nose, & Throat: Throat Pain Respiratory: Cough Cardiac: No Symptoms Abdominal/Gastrointestinal: No Symptoms Genitourinary Symptoms: No Symptoms Musculoskeletal: No Symptoms Skin: No Symptoms Neurological: No Symptoms Psychological: No Symptoms Endocrine: No Symptoms Hematologic/Lymphatic: No Symptoms Immunological/Allergic: No Symptoms All Other Systems: Reviewed and Negative - Past Medical History Pertinent Past Medical History: Yes Neurological History: Peripheral Neuropathy ENT History: No Pertinent History Cardiac History: Hypertension Respiratory History: No Pertinent History Endocrine Medical History: Diabetes Type II Musculoskeletal History: No Pertinent History GI Medical History: No Pertinent History History: Other Psycho-Social History: No Pertinent History Female Reproductive Disorders: Ovarian Cancer Other Medical History: colostomy from - Past Surgical History Past Surgical History: Yes Gastrointestinal: Other Female Surgical History: Hysterectomy Other Surgical History: colostomy - Social History Smoking Status: Current every day smoker How long have you smoked: since 14yo Exposure to second hand smoke: Yes Drug Use: none Patient Lives Alone: No - Nursing Vital Signs Nursing Vital Signs: Initial Vital Signs Temperature 98.4 F 08/12/22 15:50 Pulse Rate 68 08/12/22 15:50 Respiratory Rate 20 08/12/22 15:50 Blood Pressure 134/79 08/12/22 15:50 O2 Sat by Pulse Oximetry 99 08/12/22 15:50 Pain Scale Pain Intensity 4 - Physical Exam General Appearance: no apparent distress, alert, anxiety Eye Exam: PERRL/EOMI, eyes nml inspection Ears, Nose, Throat Exam: moist mucous membranes, pharyngeal erythema Neck Exam: normal inspection, non-tender, supple, full range of motion Respiratory Exam: normal breath sounds, lungs clear, airway intact, No chest tenderness, No respiratory distress Cardiovascular Exam: regular rate/rhythm, normal heart sounds, normal peripheral pulses Gastrointestinal/Abdomen Exam: soft, normal bowel sounds, No tenderness Pelvic Exam: not done Rectal Exam: not done Back Exam: normal inspection, normal range of motion, No CVA tenderness, No vertebral tenderness Extremity Exam: normal inspection, normal range of motion, pelvis stable Neurologic Exam: alert, oriented x 3, 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, 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, normal mood/affect, nml cerebellar function, nml station & gait, sensation nml Skin Exam: normal color, warm, dry Lymphatic Exam: No adenopathy SpO2 Interpretation: normal O2 Delivery: Room Air - Course Nursing assessment & vital signs reviewed: Yes Lab/Rad Data: Laboratory Results 08/12/22 Range/Units 16:00 Influenza Type A Ag NEGATIVE (NEGATIVE) Influenza Type B Ag NEGATIVE (NEGATIVE) RSV (PCR) NEGATIVE (Negative) SARS-CoV-2 (PCR) NEGATIVE (NEGATIVE) Group A Strep Antibody NOT DETECTED (NEGATIVE) - Progress Progress: unchanged Air Movement: good Counseled pt/family regarding: lab results, diagnosis, need for follow-up - Departure Departure Disposition: Home Clinical Impression: Pharyngitis, Cough Condition: Stable Critical Care Time: No Referrals: HANY RODRIGUEZ MD [Primary Care Provider] - Follow up/PCP as directed Additional Instructions: Avoid exposure to any type of smoke. Drink plenty of cool liquids. Follow-up with your primary care physician for persistent symptoms. Prescriptions: Hydrocodone/Acetaminophen [Hydrocodone-Acetamn 7.5-325/15] 10 ml PO Q8H PRN PRN #120 ml MDD 30 ml PRN Reason: Cough Prednisone 10 mg [Deltasone 10 mg] 10 mg PO TID #12 tablet
[2022-08-12 16:31] LABS: Group A Strep NOT DETECTED (NEGATIVE)
[2022-08-12 16:38] VITALS: BP 114/62; O2SAT 98
[2022-08-12 16:43] LABS: INFLUENZA A NEGATIVE (NEGATIVE); INFLUENZA B NEGATIVE (NEGATIVE); RESPIRATORY SYNCTIAL VIRUS NEGATIVE (Negative); SARS-CoV-2 Xpert Express NEGATIVE (NEGATIVE)
[2022-08-12 17:18] VITALS: PULSE 70
== END 2022-08-12 17:32 | disposition home or self-care (01) ==
LOC: ED 15:23
DX: J02.9 Acute pharyngitis, unspecified (principal); R05.9 Cough, unspecified; Z20.818 Contact with and (suspected) exposure to other bacterial communicable diseases; I10 Essential (primary) hypertension; E11.9 Type 2 diabetes mellitus without complications; Z79.891 Long term (current) use of opiate analgesic; Z79.52 Long term (current) use of systemic steroids; Z79.4 Long term (current) use of insulin; Z79.84 Long term (current) use of oral hypoglycemic drugs; Z79.899 Other long term (current) drug therapy; Z72.0 Tobacco use
CPT/HCPCS: 0241U; 87651; 99282

== ENCOUNTER 2022-09-17 19:33 | Emergency (ER) | payer MEDICARE ==
--- NOTE | 2022-09-17 19:46 | ERPHSYRPT ---
- History of Present Illness Time Seen by Provider: 09/17/22 19:46 Source: patient Exam Limitations: no limitations Physician History: Patient presents w/ severe b/l cramping leg pain for the past 2 days. Pain intermittent w/ no aggravating or aggravating factors. She had a similar episode 4 years ago that was caused by severe hypokalemia requiring admission. Patient also has neuropathy secondary to DM and uses a walker to ambulate. She recently stopped taking Gabapentin 2mo ago and now uses cannabis for relief. She denies F/C/N/V, CP, palpitations, SOB, swelling, numbness, tingling, dysuria, back pain. Method of Injury: unknown Occurred: days ago (2) Quality: intermittent, cramping Severity of Pain-Max: severe Severity of Pain-Current: severe Lower Extremities Pain: hip: bilateral, leg: bilateral, thigh: bilateral, foot: bilateral Modifying Factors: Improves With: nothing Associated Symptoms: none Allergies/Adverse Reactions: ketorolac [From Toradol] Allergy (Verified 09/17/22 19:39) latex Allergy (Verified 09/17/22 19:39) Sulfa (Sulfonamide Antibiotics) Allergy (Verified 09/17/22 19:39) sulfamethoxazole [From Bactrim] Allergy (Verified 09/17/22 19:39) trimethoprim [From Bactrim] Allergy (Verified 09/17/22 19:39) Home Medications: Losartan Potassium 50 mg [Cozaar 50 MG] 50 mg PO DAILY 03/26/21 [History] Metformin HCl 500 mg [Glucophage 500 MG] 2 ea PO BID 03/26/21 [History] Hydrochlorothiazide 25 mg [hydroDIURIL 25 MG] 25 mg PO DAILY 02/23/22 [History] Insulin Glargine,Hum.rec.anlog [Lantus] 14 unit SQ HS 02/23/22 [History] Ondansetron [Ondansetron Odt ] 4 mg PO DAILY PRN 02/23/22 [History] Atorvastatin Calcium [Lipitor 40Mg] 40 mg PO DAILY 02/27/22 [History] Empagliflozin [Jardiance] 10 mg PO DAILY 09/17/22 [History] Hx Tetanus, Diphtheria Vaccination/Date Given: No Hx Influenza Vaccination/Date Given: Yes Hx Pneumococcal Vaccination/Date Given: No Travel Risk - Vaccine Status Have you recieved a 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[employer] - Vaccination Dates Date of 2cond Vaccination (if applicable): 2020 - Review of Systems Constitutional: No Symptoms Eyes: No Symptoms Ears, Nose, & Throat: No Symptoms Respiratory: No Symptoms Cardiac: No Symptoms Abdominal/Gastrointestinal: No Symptoms Genitourinary Symptoms: No Symptoms Musculoskeletal: Other (b/l LE cramping pain from hips to feet) Skin: No Symptoms Neurological: No Focal Weakness, No Parasthesia, No Sensory Changes Psychological: No Symptoms Endocrine: No Symptoms Hematologic/Lymphatic: No Symptoms Immunological/Allergic: No Symptoms All Other Systems: Reviewed and Negative - Past Medical History Pertinent Past Medical History: Yes Neurological History: Peripheral Neuropathy ENT History: No Pertinent History Cardiac History: Hypertension Respiratory History: No Pertinent History Endocrine Medical History: Diabetes Type II Musculoskeletal History: No Pertinent History GI Medical History: No Pertinent History History: Other Psycho-Social History: No Pertinent History Female Reproductive Disorders: Ovarian Cancer Other Medical History: colostomy from - Past Surgical History Past Surgical History: Yes Gastrointestinal: Other Female Surgical History: Hysterectomy Other Surgical History: colostomy - Social History Smoking Status: Current every day smoker How long have you smoked: since 14yo Exposure to second hand smoke: Yes Drug Use: none Patient Lives Alone: No - Nursing Vital Signs Nursing Vital Signs: Initial Vital Signs Temperature 97.6 F 09/17/22 19:34 Pulse Rate 89 09/17/22 19:34 Respiratory Rate 20 09/17/22 19:34 Blood Pressure 134/87 09/17/22 19:34 O2 Sat by Pulse Oximetry 96 09/17/22 19:34 Pain Scale Pain Intensity 3 - Physical Exam General Appearance: no apparent distress Eyes, Ears, Nose, Throat Exam: normal ENT inspection Neck Exam: normal inspection Cardiovascular/Respiratory Exam: chest non-tender, normal breath sounds, regular rate/rhythm Gastrointestinal/Abdominal Exam: non-tender, soft Back Exam: normal inspection, normal range of motion Hips Exam: bilateral: soft tissue tenderness (multiple areas of muscle spasm palpated) Legs Exam: bilateral leg: soft tissue tenderness Neuro/Tendon Exam: normal sensation, normal motor functions, no evidence tendon injury, No motor deficit, No sensory deficit Mental Status Exam: alert, oriented x 3, cooperative Skin Exam: normal color, warm, dry, No rash, No petechiae SpO2 Interpretation: normal O2 Delivery: Room Air - Course Nursing assessment & vital signs reviewed: Yes Ordered Tests: Active Orders 24 hr Category Date Time Status CBC Stat Lab 09/17/22 20:19 Completed CK-Creatinine Phosphokinase Stat Lab 09/17/22 20:19 Completed CMP Stat Lab 09/17/22 20:19 Completed Erythrocyte Sedimentation Rate Stat Lab 09/17/22 20:19 Completed MAGNESIUM Stat Lab 09/17/22 20:19 Completed PHOSPHOROUS Stat Lab 09/17/22 20:19 Completed T4 (Thyroxine) Stat Lab 09/17/22 20:19 Received TSH, 3RD Generation Stat Lab 09/17/22 20:19 Completed Medication Summary Generic Name Dose Route Start Last Admin Trade Name Freq PRN Reason Stop Dose Admin Magnesium Oxide 400 mg 09/18/22 21:10 09/17/22 21:10 Magnesium Oxide 400 Mg Tablet PO 09/18/22 21:11 400 mg ONCE ONE Administration Discontinued Medications Generic Name Dose Route Start Last Admin Trade Name Twinq PRN Reason Stop Dose Admin Cyclobenzaprine HCl 10 mg 09/17/22 19:53 09/17/22 19:56 Cyclobenzaprine Hcl 10 Mg Tablet PO 09/17/22 19:54 10 mg STAT ONE Administration Cyclobenzaprine HCl Confirm 09/17/22 19:55 Cyclobenzaprine Hcl 10 Mg Tablet Administered 09/17/22 19:56 Dose 10 mg .ROUTE .STK-MED ONE Magnesium Oxide Confirm 09/17/22 21:09 Magnesium Oxide 400 Mg Tablet Administered 09/17/22 21:10 Dose 400 mg .ROUTE .STK-MED ONE Potassium Chloride 40 meq 09/17/22 21:07 09/17/22 21:10 Potassium Chloride Tab 10 Meq Tab PO 09/17/22 21:08 40 meq STAT ONE Administration Potassium Chloride Confirm 09/17/22 21:09 Potassium Chloride Tab 10 Meq Tab Administered 09/17/22 21:10 Dose 40 meq PO .STK-MED ONE Lab/Rad Data: Laboratory Result Diagrams 09/17/22 20:19 09/17/22 20:19 Laboratory Results 09/17/22 09/17/22 Range/Units 20:19 20:19 WBC 6.1 (4.0-10.5) x10^3/uL RBC 5.06 (4.1-5.4) x10^6/uL Hgb 14.8 (12.0-16.0) g/dL Hct 44.9 (35-47) % MCV 88.7 (78-100) fL MCH 29.2 (26-32) pg MCHC 33.0 (32-36) g/dL RDW 13.2 (11.5-14.0) % Plt Count 221 (150-450) x10^3/uL MPV 9.5 (7.5-11.0) fL ESR 27 H (0-20) mm/hr Sodium 133 L (137-145) mmol/L Potassium 3.4 L (3.5-5.1) mmol/L Chloride 97 L (98-107) mmol/L Carbon Dioxide 28 (22-30) mmol/L Anion Gap 11.6 (5-15) MEQ/L BUN 16 (7-17) mg/dL Creatinine 0.67 (0.52-1.04) mg/dL Estimated GFR > 60.0 ML/MIN Glucose 206 H (74-106) mg/dL Calcium 9.2 (8.4-10.2) mg/dL Phosphorus 4.9 H (2.5-4.5) mg/dL Magnesium 1.8 (1.6-2.3) mg/dL Total Bilirubin 0.70 (0.2-1.3) mg/dL AST 20 (14-36) U/L ALT 20 (0-35) U/L Alkaline Phosphatase 105 (38-126) U/L Creatine Kinase 73 (30-135) U/L Serum Total Protein 7.2 (6.3-8.2) g/dL Albumin 4.2 (3.5-5.0) g/dL TSH 3rd Generation 1.380 (0.47-4.68) mIU/L - Progress Progress: improved Progress Note: 09/17/22 20:41 Pain improved after Cyclobenzaprine. She was resting comfortably in bed w/ son at bedside. Labs pending. 09/17/22 21:09 K 3.4, Mg 1.8, all other labs wnl. Will give 40meq KCl and 400mg Mg Oxide. Will send patient home w/ Cyclobenzaprine for prn use. Counseled pt/family regarding: lab results, diagnosis, need for follow-up Medical Desision Making - Diagnostic Testing Diagnostic Testing: Diagnostic tests were ordered,analyzed, and reviewed by me and used in my medical decision making for this patient. Radiologic studies (if ordered) were read by me initially then discussed with the radiologist . - Risk of complications The pt has a mod risk of morbidity or mortality based on: Need for prescription drug management - Departure Departure Disposition: Home Clinical Impression: Hypokalemia, Hypomagnesemia, Muscle spasm of both lower legs Condition: Good Critical Care Time: No Referrals: HANY RODRIGUEZ MD [Primary Care Provider] - Follow up/PCP as directed Instructions: Muscle Spasms (DC) Prescriptions: Cyclobenzaprine HCl 10 mg PO TID PRN 5 Days #15 tablet PRN Reason: Pain
[2022-09-17] MEDS ORDERED: Cyclobenzaprine 10 MG PO ONE (19:53)
[2022-09-17] MEDS ORDERED: Cyclobenzaprine 10 MG ONE (19:55)
[2022-09-17 20:21] LABS: Hematocrit 44.9 % (35-47); Hemoglobin 14.8 g/dL (12.0-16.0); Mean Cell Volume 88.7 fL (78-100); Mean Corpuscular Hemoglobin 29.2 pg (26-32); Mean Platelet Volume 9.5 fL (7.5-11.0); Platelet Count 221 x10^3/uL (150-450); Red Blood Count 5.06 x10^6/uL (4.1-5.4); Red Cell Distribution Width 13.2 % (11.5-14.0); White Blood Count 6.1 x10^3/uL (4.0-10.5)
[2022-09-17 20:25] LABS: Erythrocyte Sedimentation Rate 27 mm/hr (0-20)
[2022-09-17 20:31] LABS: ALBUMIN 4.2 g/dL (3.5-5.0); ALKALINE PHOSPHATASE 105 U/L (38-126); ANION GAP 11.6 MEQ/L (5-15); BLOOD UREA NITROGEN 16 mg/dL (7-17); CHLORIDE 97 mmol/L (98-107); CK-Creatinine Phosphokinase 73 U/L (30-135); Calcium 9.2 mg/dL (8.4-10.2); Carbon Dioxide 28 mmol/L (22-30); Creatinine 1 0.67 mg/dL (0.52-1.04); EST GLOMERULAR FILTRATION RATE > 60.0 ML/MIN; Glucose 206 mg/dL (74-106); MAGNESIUM 1.8 mg/dL (1.6-2.3); PHOSPHOROUS 4.9 mg/dL (2.5-4.5); Potassium 3.4 mmol/L (3.5-5.1); SGOT/AST 20 U/L (14-36); SGPT/ALT 20 U/L (0-35); SODIUM 133 mmol/L (137-145); Total Protein 7.2 g/dL (6.3-8.2)
[2022-09-17 20:36] VITALS: O2SAT 95
[2022-09-17] MEDS ORDERED: Klor Con PO ONE ×2 (21:07→21:09)
[2022-09-17 21:09] VITALS: BP 112/75; PULSE 73
[2022-09-17] MEDS ORDERED: MAG-OX 400 ONE (21:09)
[2022-09-18] MEDS ORDERED: MAG-OX 400 PO ONE (21:10)
== END 2022-09-17 21:24 | disposition home or self-care (01) ==
LOC: ED 19:33
DX: E87.6 Hypokalemia (principal); E83.42 Hypomagnesemia; R25.2 Cramp and spasm; E11.42 Type 2 diabetes mellitus with diabetic polyneuropathy; I10 Essential (primary) hypertension; Z79.4 Long term (current) use of insulin; Z79.84 Long term (current) use of oral hypoglycemic drugs; Z79.899 Other long term (current) drug therapy; Z72.0 Tobacco use
CPT/HCPCS: 36415; 80053; 82550; 83735; 84100; 84436; 84443; 85027; 85652; 86140; 99283; A9270-GY

== ENCOUNTER 2022-10-10 18:00 | Emergency (ER) | payer MEDICARE ==
[2022-10-10 18:41] LABS: Appearance Clear (Clear); Bilirubin Negative (Negative); Blood Trace (Negative); Epithelial Cells Few /HPF (None Seen); Glucose, Urine >=1000 mg/dL (Negative); Hyaline Casts NONE SEEN /LPF (0-2); Ketones Negative (Negative); Leukocyte Esterase Small (Negative); Nitrite Negative (Negative); Protein,Urine Dip Negative (Negative); Specific Gravity >=1.030 (1.005-1.030); Urobilinogen 0.2 mg/dL (0.2)
[2022-10-10 18:48] VITALS: BP 120/70; PULSE 83; O2SAT 97
[2022-10-10 18:50] LABS: ADD URINE CULTURE? YES (NO); Bacteria Rare /HPF (None Seen)
--- NOTE | 2022-10-10 19:17 | ERPHSYRPT ---
- History of Present Illness Time Seen by Provider: 10/10/22 19:12 Source: patient Exam Limitations: no limitations Patient Subjective Stated Complaint: C/O burning with urination that started a few days ago Triage Nursing Assessment: Patient is alert and oriented. No SOB. Patient walks with an unsteady gait; states normal for her related to neuropathy. Urine specimen obtained. Physician History: pt has her usual UTI symptoms with burning down below usually treated well with Cipro and she is aware of tendon risks and choses to proceed with this AB after discussion. Denies abd symptoms no N or V. DM controlled at 120s. knows of glucose in urine. No abd or CP or other symptoms. ericka diet well. Chest clear. Abd soft nontender without peritoneal signs or masses. Timing/Duration: today Activites at Onset: none Quality: burning Onset Location: other (no pain) Pain Radiation: none Severity of Pain-Max: none Severity of Pain-Current: none Prior abdominal problems: none Sexual intercourse history: non-contributory Modifying Factors: Improves With: nothing Allergies/Adverse Reactions: ketorolac [From Toradol] Allergy (Verified 10/10/22 18:38) latex Allergy (Verified 10/10/22 18:38) Sulfa (Sulfonamide Antibiotics) Allergy (Verified 10/10/22 18:38) sulfamethoxazole [From Bactrim] Allergy (Verified 10/10/22 18:38) trimethoprim [From Bactrim] Allergy (Verified 10/10/22 18:38) Home Medications: Losartan Potassium 50 mg [Cozaar 50 MG] 50 mg PO DAILY 03/26/21 [History] Metformin HCl 500 mg [Glucophage 500 MG] 2 ea PO BID 03/26/21 [History] Hydrochlorothiazide 25 mg [hydroDIURIL 25 MG] 25 mg PO DAILY 02/23/22 [History] Insulin Glargine,Hum.rec.anlog [Lantus] 14 unit SQ HS 02/23/22 [History] Ondansetron [Ondansetron Odt ] 4 mg PO DAILY PRN 02/23/22 [History] Atorvastatin Calcium [Lipitor 40Mg] 40 mg PO DAILY 02/27/22 [History] Empagliflozin [Jardiance] 10 mg PO DAILY 09/17/22 [History] Hx Tetanus, Diphtheria Vaccination/Date Given: Yes Hx Influenza Vaccination/Date Given: Yes Hx Pneumococcal Vaccination/Date Given: No Travel Risk - International Travel Have you traveled outside of the country in past 3 weeks: No - Coronavirus Screening Are you exhibiting any of the following symptoms?: No Close contact with a COVID-19 positive Pt in past 14-21 Days: No - Vaccine Status Have you recieved a Covid-19 vaccination: Yes 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[email or web address] - Vaccination Dates Date of 2cond Vaccination (if applicable): 2020 - Review of Systems Constitutional: No Fever, No Chills Eyes: No Symptoms Ears, Nose, & Throat: No Symptoms Respiratory: No Cough, No Dyspnea Cardiac: No Chest Pain, No Edema, No Syncope Abdominal/Gastrointestinal: No Abdominal Pain, No Nausea, No Vomiting, No Diarrhea Genitourinary Symptoms: Dysuria, Frequency Musculoskeletal: No Back Pain, No Neck Pain Skin: No Rash Neurological: No Dizziness, No Focal Weakness, No Sensory Changes Psychological: No Symptoms Endocrine: No Symptoms Hematologic/Lymphatic: No Symptoms Immunological/Allergic: No Symptoms All Other Systems: Reviewed and Negative - Past Medical History Pertinent Past Medical History: Yes Neurological History: Peripheral Neuropathy ENT History: No Pertinent History Cardiac History: High Cholesterol, Hypertension Respiratory History: No Pertinent History Endocrine Medical History: Diabetes Type II Musculoskeletal History: No Pertinent History GI Medical History: No Pertinent History History: Other Psycho-Social History: No Pertinent History Female Reproductive Disorders: Ovarian Cancer Other Medical History: colostomy from , right ovarian CA - Past Surgical History Past Surgical History: Yes Gastrointestinal: Other Female Surgical History: Hysterectomy Other Surgical History: colostomy, right ovary removed - Social History Smoking Status: Current every day smoker How long have you smoked: since 14yo Exposure to second hand smoke: Yes Drug Use: none Patient Lives Alone: No - Female History Hx Now: No - Nursing Vital Signs Nursing Vital Signs: Initial Vital Signs Temperature 98.6 F 10/10/22 18:38 Pulse Rate 83 10/10/22 18:38 Respiratory Rate 18 10/10/22 18:38 Blood Pressure 120/70 10/10/22 18:38 O2 Sat by Pulse Oximetry 97 10/10/22 18:38 Pain Scale Pain Intensity 0 - Physical Exam General Appearance: no apparent distress, alert Eye Exam: PERRL/EOMI, eyes nml inspection Ears, Nose, Throat Exam: normal ENT inspection, TMs normal, pharynx normal, moist mucous membranes Neck Exam: normal inspection, non-tender, supple, full range of motion Respiratory Exam: normal breath sounds, lungs clear, No respiratory distress Cardiovascular Exam: regular rate/rhythm, normal heart sounds, normal peripheral pulses Gastrointestinal/Abdomen Exam: soft, No tenderness, No mass Rectal Exam: deferred Back Exam: normal inspection, normal range of motion, No CVA tenderness, No vertebral tenderness Extremity Exam: normal inspection, normal range of motion, pelvis stable Neurologic Exam: alert, oriented x 3, cooperative, 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, normal mood/affect, sensation nml, No motor deficits Skin Exam: normal color, warm, dry Lymphatic Exam: No adenopathy SpO2: 97 - Course Nursing assessment & vital signs reviewed: Yes Ordered Tests: Active Orders 24 hr Category Date Time Status CULTURE,URINE Stat Lab 10/10/22 18:23 Received HCG,QUALITATIVE URINE Stat Lab 10/10/22 19:15 Completed UA W/RFX UR CULTURE Stat Lab 10/10/22 18:23 Completed Lab/Rad Data: Laboratory Results 10/10/22 10/10/22 Range/Units 19:15 18:23 Urine Color Yellow (Yellow) Urine Appearance Clear (Clear) Urine pH 6.0 (4.6-8.0) Ur Specific [place] >=1.030 A (1.005-1.030) Urine Protein Negative (Negative) Urine Glucose (UA) >=1000 A (Negative) mg/dL Urine Ketones Negative (Negative) Urine Blood Trace (Negative) Urine Nitrite Negative (Negative) Urine Bilirubin Negative (Negative) Urine Urobilinogen 0.2 (0.2) mg/dL Ur Leukocyte Esterase Small A (Negative) U Hyaline Cast (Auto) NONE SEEN (0-2) /LPF Urine Microscopic RBC 3-5 (0-5) /HPF Urine Microscopic WBC 6-10 A (0-5) /HPF Ur Epithelial Cells Few (None Seen) /HPF Urine Bacteria Rare A (None Seen) /HPF Urine Culture Reflexed YES (NO) Urine HCG, Qual NEGATIVE (Negative) - Progress Progress: improved, re-examined Air Movement: good Blood Culture(s) Obtained: No Antibiotics given: Yes Counseled pt/family regarding: lab results, diagnosis, need for follow-up Medical Desision Making - Discussion of managment Reviewed:: Test results, Need for additional workup Agreed on:: Treatment plan, need for follow-up - Departure Departure Disposition: Home Clinical Impression: UTI (urinary tract infection) Condition: Good Critical Care Time: No Referrals: HANY RODRIGUEZ MD [Primary Care Provider] - Follow up/PCP as directed Instructions: Urinary Tract Infection, Adult (DC) Additional Instructions: followup with your Dr. to recheck urine andto consider longterm therapy or further workup. Return meantime if any symptoms of concern, vomiting stomach pain or not improving. Prescriptions: Ciprofloxacin [Cipro 500 MG] 500 mg PO BID 10 Days #20 tablet
[2022-10-10] MEDS ORDERED: Cipro 500 MG PO ONE (19:46)
[2022-10-10] MEDS ORDERED: Cipro 500 MG ONE (19:50)
== END 2022-10-10 19:57 | disposition home or self-care (01) ==
LOC: ED 18:00
DX: N39.0 Urinary tract infection, site not specified (principal); R30.0 Dysuria; E11.9 Type 2 diabetes mellitus without complications; E78.5 Hyperlipidemia, unspecified; I10 Essential (primary) hypertension; Z79.4 Long term (current) use of insulin; Z79.84 Long term (current) use of oral hypoglycemic drugs; Z79.899 Other long term (current) drug therapy; Z72.0 Tobacco use
CPT/HCPCS: 81001; 81025; 87086; 99282; A9270-GY

== ENCOUNTER 2023-05-18 19:23 | Emergency (ER) | payer MEDICARE ==
[2023-05-18 19:41] VITALS: TEMP 97.6
[2023-05-18] MEDS ORDERED: Nitrostat 0.4 MG (ED) SL ONE ×2 (19:44→19:57)
[2023-05-18] MEDS ORDERED: BABY ASPIRIN 81 MG CHEW PO ONE (19:44)
--- NOTE | 2023-05-18 19:44 | ERPHSYRPT ---
- History of Present Illness Time Seen by Provider: 05/18/23 19:38 Historian: patient Physician History: Pt states she started with sharp intermittent left anterior chest pain about 1 hour ago episodes lasting up to 30 seconds with shortness of air and nausea; denies vomiting, abdominal pain, fever. Aspirin Treatment Today: 81 mg x 4, provided by ED Allergies/Adverse Reactions: ketorolac [From Toradol] Allergy (Verified 05/18/23 19:24) latex Allergy (Verified 05/18/23 19:24) losartan Allergy (Verified 05/18/23 19:24) Sulfa (Sulfonamide Antibiotics) Allergy (Verified 05/18/23 19:24) sulfamethoxazole [From Bactrim] Allergy (Verified 05/18/23 19:24) trimethoprim [From Bactrim] Allergy (Verified 05/18/23 19:24) Home Medications: Metformin HCl 500 mg [Glucophage 500 MG] 2 ea PO BID 03/26/21 [History] Hydrochlorothiazide 25 mg [hydroDIURIL 25 MG] 25 mg PO DAILY 02/23/22 [History] Atorvastatin Calcium [Lipitor 40Mg] 40 mg PO DAILY 02/27/22 [History] Empagliflozin [Jardiance] 10 mg PO DAILY 09/17/22 [History] Gabapentin 800 mg PO QID 05/18/23 [History] Insulin Aspart [Novolog] 20 unit SQ HS 05/18/23 [History] Hx Tetanus, Diphtheria Vaccination/Date Given: Yes Hx Influenza Vaccination/Date Given: Yes Hx Pneumococcal Vaccination/Date Given: No Travel Risk - Vaccine Status Have you recieved a Covid-19 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: 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[employer] - Vaccination Dates Date of 2cond Vaccination (if applicable): 2020 - Review of Systems Constitutional: No Fever Ears, Nose, & Throat: No Throat Pain Respiratory: Dyspnea Cardiac: Chest Pain Abdominal/Gastrointestinal: Nausea, No Abdominal Pain, No Vomiting Neurological: No Headache - Past Medical History Pertinent Past Medical History: Yes Neurological History: Peripheral Neuropathy ENT History: No Pertinent History Cardiac History: High Cholesterol, Hypertension Respiratory History: No Pertinent History Endocrine Medical History: Diabetes Type II Musculoskeletal History: No Pertinent History GI Medical History: No Pertinent History History: Other Psycho-Social History: No Pertinent History Female Reproductive Disorders: Ovarian Cancer Other Medical History: colostomy from , right ovarian CA - Past Surgical History Past Surgical History: Yes Gastrointestinal: Other Female Surgical History: Hysterectomy Other Surgical History: colostomy, right ovary removed - Social History Smoking Status: Current every day smoker How long have you smoked: since 14yo Exposure to second hand smoke: Yes Drug Use: none Patient Lives Alone: No - Nursing Vital Signs Nursing Vital Signs: Initial Vital Signs Temperature 97.6 F 05/18/23 19:23 Pulse Rate 78 05/18/23 19:23 Respiratory Rate 28 H 05/18/23 19:23 Blood Pressure 158/95 05/18/23 19:23 O2 Sat by Pulse Oximetry 99 05/18/23 19:23 Pain Scale Pain Intensity 7 - Physical Exam General Appearance: alert Eye Exam: other (exotropia) Ears, Nose, Throat Exam: TM abnormal (R) (mildly erythematous), pharyngeal e rythema Neck Exam: normal inspection Respiratory Exam: normal breath sounds Cardiovascular Exam: regular rate/rhythm, normal heart sounds Gastrointestinal/Abdomen Exam: soft, normal bowel sounds Extremity Exam: normal inspection Neurologic Exam: alert, cooperative Skin Exam: warm, dry SpO2 Interpretation: normal SpO2: 99 O2 Delivery: Room Air - Course EKG Interpreted by Me: RATE (65), Sinus Rhythm, NORMAL AXIS, NORMAL INTERVALS, Other (QTc = 443) - CT Exams Chest CT Interpretation: Discussed w/radiologist, No PE Ordered Tests: Active Orders 24 hr Category Date Time 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 [employer] Inspector STAT Care 05/18/23 19:49 Active Clean Catch Urine Specimen STAT Care 05/18/23 21:15 Active EKG-ER Only STAT Care 05/18/23 19:44 Active IV Insertion STAT Care 05/18/23 19:44 Active POCT Glucose Check STAT Care 05/18/23 22:05 Active CHEST WITH CONTRAST [CT] Stat Exams 05/18/23 21:41 Taken CBC W DIFF Stat Lab 05/18/23 19:45 Completed CMP Stat Lab 05/18/23 19:45 Completed HCG QUALITATIVE, SERUM Stat Lab 05/18/23 19:45 Completed HCG, Quantitative (Inhouse) Stat Lab 05/18/23 20:59 Completed POCT GLUCOSE Stat Lab 05/18/23 22:30 Completed TROPONIN Q4H Lab 05/18/23 19:45 Completed TROPONIN Q4H Lab 05/19/23 03:45 Ordered Urine Triage Profile Stat Lab 05/18/23 21:22 Completed Medication Summary Generic Name Dose Route Start Last Admin Trade Name Rafael PRN Reason Stop Dose Admin Gabapentin 600 mg 05/18/23 22:00 05/18/23 21:23 Gabapentin 300 Mg Capsule PO 06/17/23 21:59 600 mg HS EARNEST Administration Sodium Chloride 1,000 mls @ 100 mls/hr 05/18/23 19:45 05/18/23 19:58 Sodium Chloride 0.9% 1000 Ml IV 06/17/23 19:44 100 mls/hr .Q10H EARNEST Administration Discontinued Medications Generic Name Dose Route Start Last Admin Trade Name Rafael PRN Reason Stop Dose Admin Aspirin 324 mg 05/18/23 19:44 05/18/23 19:57 Aspirin 81 Mg Tab.Chew PO 05/18/23 19:45 324 mg STAT ONE Administration Aspirin Confirm 05/18/23 19:57 Aspirin 81 Mg Tab.Chew Administered 05/18/23 19:58 Dose 324 mg .ROUTE .STK-MED ONE Insulin Human Regular 10 unit 05/18/23 20:32 05/18/23 20:36 Insulin Regular, Human 1 Unit IV 05/18/23 20:33 10 unit STAT ONE Administration Insulin Human Regular Confirm 05/18/23 20:35 Insulin Regular, Human 1 Unit Administered 05/18/23 20:36 Dose 10 unit .ROUTE .STK-MED ONE Morphine Sulfate 4 mg 05/18/23 21:15 05/18/23 21:18 Morphine Sulfate 4 Mg/Ml Injection IV 05/18/23 21:16 4 mg STAT ONE Administration Morphine Sulfate Confirm 05/18/23 21:17 Morphine Sulfate 4 Mg/Ml Injection Administered 05/18/23 21:18 Dose 4 mg .ROUTE .STK-MED ONE Nitroglycerin 0.4 mg 05/18/23 19:44 05/18/23 19:57 Nitroglycerin 0.4 Mg (Ed) 0.4 Mg Tab.Subl SL 05/18/23 19:45 0.4 mg STAT ONE Administration Nitroglycerin Confirm 05/18/23 19:57 Nitroglycerin 0.4 Mg (Ed) 0.4 Mg Tab.Subl Administered 05/18/23 19:58 Dose 0.4 mg SL .STK-MED ONE Ondansetron HCl 4 mg 05/18/23 21:04 05/18/23 21:09 Ondansetron Hcl 4 Mg/2 Ml Vial IV 05/18/23 21:05 4 mg STAT ONE Administration Ondansetron HCl Confirm 05/18/23 21:08 Ondansetron Hcl 4 Mg/2 Ml Vial Administered 05/18/23 21:09 Dose 4 mg .ROUTE .STK-MED ONE Tetanus/Diphtheria Toxoids Adsorbed 0.5 ml 05/18/23 21:45 05/18/23 21:47 Tetanus And Diphtheria Tox/Pf 0.5 Ml Vial IM 05/18/23 21:46 Not Given .ONCE ONE Lab/Rad Data: Laboratory Result Diagrams 05/18/23 19:45 05/18/23 19:45 Laboratory Results 05/18/23 05/18/23 05/18/23 Range/Units 22:30 21:22 20:59 WBC (4.0-10.5) x10^3/uL RBC (4.1-5.4) x10^6/uL Hgb (12.0-16.0) g/dL Hct (35-47) % MCV (78-100) fL MCH (26-32) pg MCHC (32-36) g/dL RDW (11.5-14.0) % Plt Count (150-450) x10^3/uL MPV (7.5-11.0) fL Gran % (36.0-66.0) % Immature Gran % (Auto) (0.00-0.4) % Nucleat RBC Rel Count (0.00-0.1) % Eos # (Auto) (0-0.5) x10^3/uL Immature Gran # (Auto) (0.00-0.03) x10^3u/L Absolute Lymphs (auto) (1.0-4.6) x10^3/uL Absolute Monos (auto) (0.0-1.3) x10^3/uL Absolute Nucleated RBC (0.00-0.01) x10^3u/L Lymphocytes % (24.0-44.0) % Monocytes % (0.0-12.0) % Eosinophils % (0.00-5.0) % Basophils % (0.0-0.4) % Absolute Granulocytes (1.4-6.9) x10^3/uL Basophils # (0-0.4) x10^3/uL Sodium (137-145) mmol/L Potassium (3.5-5.1) mmol/L Chloride (98-107) mmol/L Carbon Dioxide (22-30) mmol/L Anion Gap (5-15) MEQ/L BUN (7-17) mg/dL Creatinine (0.52-1.04) mg/dL Estimated GFR ML/MIN Glucose (74-106) mg/dL POC Glucometer 168 H (74 to 106) mg/dL Calcium (8.4-10.2) mg/dL Total Bilirubin (0.2-1.3) mg/dL AST (14-36) U/L ALT (0-35) U/L Alkaline Phosphatase (38-126) U/L Troponin I (0.000-0.034) ng/mL Serum Total Protein (6.3-8.2) g/dL Albumin (3.5-5.0) g/dL Serum HCG, Qual (NEGATIVE) Beta HCG, Quant 5.31 mIU/ml Urine Opiates Level NEGATIVE (NEGATIVE) Ur Methadone NEGATIVE (NEGATIVE) Urine Barbiturates NEGATIVE (NEGATIVE) Ur Phencyclidine (PCP) NEGATIVE (NEGATIVE) Urine Amphetamine NEGATIVE (NEGATIVE) U Benzodiazepine Level NEGATIVE (NEGATIVE) Urine Cocaine NEGATIVE (NEGATIVE) Urine Marijuana (THC) POSITIVE (NEGATIVE) Influenza Type A Ag (NEGATIVE) Influenza Type B Ag (NEGATIVE) RSV (PCR) (NEGATIVE) SARS-CoV-2 (PCR) (NEGATIVE) Group A Strep Antibody (NEGATIVE) 05/18/23 05/18/23 05/18/23 Range/Units 20:11 20:11 19:45 WBC (4.0-10.5) x10^3/uL RBC (4.1-5.4) x10^6/uL Hgb (12.0-16.0) g/dL Hct (35-47) % MCV (78-100) fL MCH (26-32) pg MCHC (32-36) g/dL RDW (11.5-14.0) % Plt Count (150-450) x10^3/uL MPV (7.5-11.0) fL Gran % (36.0-66.0) % Immature Gran % (Auto) (0.00-0.4) % Nucleat RBC Rel Count (0.00-0.1) % Eos # (Auto) (0-0.5) x10^3/uL Immature Gran # (Auto) (0.00-0.03) x10^3u/L Absolute Lymphs (auto) (1.0-4.6) x10^3/uL Absolute Monos (auto) (0.0-1.3) x10^3/uL Absolute Nucleated RBC (0.00-0.01) x10^3u/L Lymphocytes % (24.0-44.0) % Monocytes % (0.0-12.0) % Eosinophils % (0.00-5.0) % Basophils % (0.0-0.4) % Absolute Granulocytes (1.4-6.9) x10^3/uL Basophils # (0-0.4) x10^3/uL Sodium (137-145) mmol/L Potassium (3.5-5.1) mmol/L Chloride (98-107) mmol/L Carbon Dioxide (22-30) mmol/L Anion Gap (5-15) MEQ/L BUN (7-17) mg/dL Creatinine (0.52-1.04) mg/dL Estimated GFR ML/MIN Glucose (74-106) mg/dL POC Glucometer (74 to 106) mg/dL Calcium (8.4-10.2) mg/dL Total Bilirubin (0.2-1.3) mg/dL AST (14-36) U/L ALT (0-35) U/L Alkaline Phosphatase (38-126) U/L Troponin I (0.000-0.034) ng/mL Serum Total Protein (6.3-8.2) g/dL Albumin (3.5-5.0) g/dL Serum HCG, Qual POSITIVE (NEGATIVE) Beta HCG, Quant mIU/ml Urine Opiates Level (NEGATIVE) Ur Methadone (NEGATIVE) Urine Barbiturates (NEGATIVE) Ur Phencyclidine (PCP) (NEGATIVE) Urine Amphetamine (NEGATIVE) U Benzodiazepine Level (NEGATIVE) Urine Cocaine (NEGATIVE) Urine Marijuana (THC) (NEGATIVE) Influenza Type A Ag NEGATIVE (NEGATIVE) Influenza Type B Ag NEGATIVE (NEGATIVE) RSV (PCR) NEGATIVE (NEGATIVE) SARS-CoV-2 (PCR) NEGATIVE (NEGATIVE) Group A Strep Antibody NOT DETECTED (NEGATIVE) 05/18/23 05/18/23 05/18/23 Range/Units 19:45 19:45 19:45 WBC 8.2 (4.0-10.5) x10^3/uL RBC 5.29 (4.1-5.4) x10^6/uL Hgb 15.4 (12.0-16.0) g/dL Hct 46.2 (35-47) % MCV 87.3 (78-100) fL MCH 29.1 (26-32) pg MCHC 33.3 (32-36) g/dL RDW 12.5 (11.5-14.0) % Plt Count 231 (150-450) x10^3/uL MPV 10.5 (7.5-11.0) fL Gran % 58.9 (36.0-66.0) % Immature Gran % (Auto) 0.2 (0.00-0.4) % Nucleat RBC Rel Count 0.0 (0.00-0.1) % Eos # (Auto) 0.12 (0-0.5) x10^3/uL Immature Gran # (Auto) 0.02 (0.00-0.03) x10^3u/L Absolute Lymphs (auto) 2.49 (1.0-4.6) x10^3/uL Absolute Monos (auto) 0.70 (0.0-1.3) x10^3/uL Absolute Nucleated RBC 0.00 (0.00-0.01) x10^3u/L Lymphocytes % 30.4 (24.0-44.0) % Monocytes % 8.5 (0.0-12.0) % Eosinophils % 1.5 (0.00-5.0) % Basophils % 0.5 (0.0-0.4) % Absolute Granulocytes 4.82 (1.4-6.9) x10^3/uL Basophils # 0.04 (0-0.4) x10^3/uL Sodium 133 L (137-145) mmol/L Potassium 3.5 (3.5-5.1) mmol/L Chloride 96 L (98-107) mmol/L Carbon Dioxide 22 (22-30) mmol/L Anion Gap 17.9 H (5-15) MEQ/L BUN 12 (7-17) mg/dL Creatinine 0.64 (0.52-1.04) mg/dL Estimated GFR > 60.0 ML/MIN Glucose 624 H* (74-106) mg/dL POC Glucometer (74 to 106) mg/dL Calcium 9.0 (8.4-10.2) mg/dL Total Bilirubin 0.90 (0.2-1.3) mg/dL AST 23 (14-36) U/L ALT 25 (0-35) U/L Alkaline Phosphatase 195 H (38-126) U/L Troponin I < 0.012 (0.000-0.034) ng/mL Serum Total Protein 6.9 (6.3-8.2) g/dL Albumin 4.2 (3.5-5.0) g/dL Serum HCG, Qual (NEGATIVE) Beta HCG, Quant mIU/ml Urine Opiates Level (NEGATIVE) Ur Methadone (NEGATIVE) Urine Barbiturates (NEGATIVE) Ur Phencyclidine (PCP) (NEGATIVE) Urine Amphetamine (NEGATIVE) U Benzodiazepine Level (NEGATIVE) Urine Cocaine (NEGATIVE) Urine Marijuana (THC) (NEGATIVE) Influenza Type A Ag (NEGATIVE) Influenza Type B Ag (NEGATIVE) RSV (PCR) (NEGATIVE) SARS-CoV-2 (PCR) (NEGATIVE) Group A Strep Antibody (NEGATIVE) - Progress Progress: improved Progress Note: 05/18/23 22:31 Accucheck = 168 @ 2227. Pt states she has no chest pain. - Departure Departure Disposition: AMA Clinical Impression: Chest pain, Dyspnea, Hyperglycemia Condition: Stable Critical Care Time: No Referrals: HANY RODRIGUEZ MD [Primary Care Provider] - Follow up/PCP as directed Instructions: Chest Pain (DC) Additional Instructions: Follow up with private doctor tomorrow.
[2023-05-18] MEDS ORDERED: Sodium Chloride 0.9% 1000 ML 1,000 ML IV SCH (19:45)
[2023-05-18 19:55] LABS: Absolute Neutrophil Ct (ANC) 4.82 x10^3/uL (1.4-6.9); BASOPHIL % 0.5 % (0.0-0.4); Basophil (Absolute #) 0.04 x10^3/uL (0-0.4); Eosinophil % 1.5 % (0.00-5.0); Eosinophil (Absolute #) 0.12 x10^3/uL (0-0.5); Hematocrit 46.2 % (35-47); Hemoglobin 15.4 g/dL (12.0-16.0); IMMATURE GRAN # 0.02 x10^3u/L (0.00-0.03); IMMATURE GRAN % 0.2 % (0.00-0.4); Lymphocyte (Absolute #) 2.49 x10^3/uL (1.0-4.6); Lymphocytes % 30.4 % (24.0-44.0); Mean Cell Volume 87.3 fL (78-100); Mean Corpuscular Hemoglobin 29.1 pg (26-32); Mean Corpuscular Hgb Concent. 33.3 g/dL (32-36); Mean Platelet Volume 10.5 fL (7.5-11.0); Monocytes % 8.5 % (0.0-12.0); Neutrophil % 58.9 % (36.0-66.0); Platelet Count 231 x10^3/uL (150-450); Red Blood Count 5.29 x10^6/uL (4.1-5.4); Red Cell Distribution Width 12.5 % (11.5-14.0); White Blood Count 8.2 x10^3/uL (4.0-10.5)
[2023-05-18] MEDS ORDERED: Sodium Chloride 0.9% 1000 ML 1,000 ML ONE (19:57)
[2023-05-18] MEDS ORDERED: BABY ASPIRIN 81 MG CHEW ONE (19:57)
[2023-05-18 20:11] LABS: ALBUMIN 4.2 g/dL (3.5-5.0); ALKALINE PHOSPHATASE 195 U/L (38-126); ANION GAP 17.9 MEQ/L (5-15); BLOOD UREA NITROGEN 12 mg/dL (7-17); CHLORIDE 96 mmol/L (98-107); Carbon Dioxide 22 mmol/L (22-30); Creatinine 1 0.64 mg/dL (0.52-1.04); EST GLOMERULAR FILTRATION RATE > 60.0 ML/MIN; Potassium 3.5 mmol/L (3.5-5.1); SGOT/AST 23 U/L (14-36); SGPT/ALT 25 U/L (0-35); SODIUM 133 mmol/L (137-145); Total Protein 6.9 g/dL (6.3-8.2)
[2023-05-18 20:22] LABS: Glucose 624 mg/dL (74-106)
[2023-05-18] MEDS ORDERED: HUMULIN R IV ONE (20:32)
[2023-05-18] MEDS ORDERED: HUMULIN R ONE (20:35)
[2023-05-18 20:51] LABS: INFLUENZA A NEGATIVE (NEGATIVE); INFLUENZA B NEGATIVE (NEGATIVE); RESPIRATORY SYNCTIAL VIRUS NEGATIVE (NEGATIVE)
[2023-05-18 20:54] LABS: SARS-CoV-2 Xpert Express NEGATIVE (NEGATIVE)
[2023-05-18 20:56] LABS: HCG SERUM TEST POSITIVE (NEGATIVE)
[2023-05-18] MEDS ORDERED: Zofran 4 MG/2 ML VIAL IV ONE (21:04)
[2023-05-18] MEDS ORDERED: Zofran 4 MG/2 ML VIAL ONE (21:08)
[2023-05-18] MEDS ORDERED: MORPHINE SULFATE 4 MG INJ IV ONE (21:15)
[2023-05-18] MEDS ORDERED: MORPHINE SULFATE 4 MG INJ ONE (21:17)
[2023-05-18] MEDS ORDERED: NEURONTIN ONE (21:20)
[2023-05-18 21:29] VITALS: RESP 28
[2023-05-18 21:37] LABS: Amphetamine,Urine NEGATIVE (NEGATIVE); Barbiturate,Urine NEGATIVE (NEGATIVE); Benzodiazepine,Urine NEGATIVE (NEGATIVE); Cocaine,Urine NEGATIVE (NEGATIVE); Methadone,Urine NEGATIVE (NEGATIVE); Opiate,Urine NEGATIVE (NEGATIVE); PCP,Urine NEGATIVE (NEGATIVE); THC,Urine POSITIVE (NEGATIVE)
[2023-05-18] MEDS ORDERED: TENIVAC VIAL IM ONE (21:45)
[2023-05-18] MEDS ORDERED: NEURONTIN PO SCH (22:00)
[2023-05-18 22:25] VITALS: BP 142/89; PULSE 81
[2023-05-18 22:36] VITALS: O2SAT 99
--- NOTE | 2023-05-19 08:43 | XRAY ---
Indication: Chest pain. Multiple contiguous axial images obtained through the chest using 80 cc Isovue 370 contrast and PE protocol. Comparison: None Good opacification of the pulmonary arteries to include the lobar and segmental branches. No pulmonary embolus. Heart not enlarged. Aorta is normal in course and caliber. Small mediastinal/left hilar calcified nodes. No pathologic mediastinal/hilar lymphadenopathy. Lungs demonstrates mild pulmonary emphysema and small left upper lobe calcified granuloma. No infiltrate, consolidation, or effusion. Bony thorax intact with minimal multilevel thoracic degenerative changes and tiny multilevel Schmorl nodes. Limited upper abdomen demonstrates distended stomach with food/fluid. Visualized colon is moderately air distended with scattered fecal debris. Impression: 1. Negative pulmonary embolus. No acute cardiopulmonary abnormalities. 2. Incompletely visualized distended colon with fecal stasis. 3. Chronic findings including chronic bony findings and old granulomatous disease.
== END 2023-05-18 22:40 | disposition left against medical advice (07) ==
LOC: ED 19:23
DX: R07.9 Chest pain, unspecified (principal); R06.00 Dyspnea, unspecified; E11.65 Type 2 diabetes mellitus with hyperglycemia; R11.0 Nausea; E78.5 Hyperlipidemia, unspecified; I10 Essential (primary) hypertension; E11.42 Type 2 diabetes mellitus with diabetic polyneuropathy; Z79.84 Long term (current) use of oral hypoglycemic drugs; Z79.4 Long term (current) use of insulin; Z79.899 Other long term (current) drug therapy; Z72.0 Tobacco use
CPT/HCPCS: 0241U; 36000; 36415; 71260; 80053; 80307; 82947; 84484; 84702; 84703; 85025; 87651; 93005; 93041; 96374; 96375; 99284; J1815; J2270; J2405; A9270-GY

== ENCOUNTER 2023-07-05 16:08 | Emergency (ER) | payer MEDICARE ==
--- NOTE | 2023-07-05 16:12 | ERPHSYRPT ---
- History of Present Illness Time Seen by Provider: 07/05/23 16:11 Historian: patient Exam Limitations: no limitations Physician History: This is a 43-year-old white female patient of Dr. Rodriguez who presents to the emergency department with substernal central chest pressure described like an elephant sitting on her chest. She was seen here on 05/18/2023 for chest pain and the workup was negative. When I reviewed the patient's laboratory results, I found that the patient had a positive test and a slightly elevated quantitative hCG value. She did not think she would be . Patient is a daily smoker of cigarettes. Patient has history of ovarian cancer. Patient is a diabetic, has hypertension and hyperlipidemia. She also has peripheral neuropathy. Patient has a Lexiscan stress test scheduled for 07/10/2023. Timing/Duration: yesterday Activities at Onset: none Quality: pressure Location: substernal, central Chest Pain Radiation: no radiation Severity of Pain-Max: mild Severity of Pain-Current: mild (To moderate to moderate) Modifying Factors: Improves With: nothing Associated Symptoms: denies symptoms Prior Chest Pain/Cardiac Workup: stress test, recently seen/treated Nitro Today/Relief: no nitro taken today Aspirin Treatment Today: no aspirin today Allergies/Adverse Reactions: ketorolac [From Toradol] Allergy (Verified 07/05/23 16:40) latex Allergy (Verified 07/05/23 16:40) losartan Allergy (Verified 07/05/23 16:40) Sulfa (Sulfonamide Antibiotics) Allergy (Verified 07/05/23 16:40) sulfamethoxazole [From Bactrim] Allergy (Verified 07/05/23 16:40) trimethoprim [From Bactrim] Allergy (Verified 07/05/23 16:40) Home Medications: Metformin HCl 500 mg [Glucophage 500 MG] 2 ea PO BID 03/26/21 [History] Hydrochlorothiazide 25 mg [hydroDIURIL 25 MG] 25 mg PO DAILY 02/23/22 [History] Atorvastatin Calcium [Lipitor 40Mg] 40 mg PO DAILY 02/27/22 [History] Empagliflozin [Jardiance] 10 mg PO DAILY 09/17/22 [History] Gabapentin 800 mg PO QID 05/18/23 [History] Insulin Aspart [Novolog] 20 unit SQ HS 05/18/23 [History] Hx Tetanus, Diphtheria Vaccination/Date Given: Yes Hx Influenza Vaccination/Date Given: Yes Hx Pneumococcal Vaccination/Date Given: No Travel Risk - International Travel Have you traveled outside of the country in past 3 weeks: No - Coronavirus Screening Are you exhibiting any of the following symptoms?: No Close contact with a COVID-19 positive Pt in past 14-21 Days: No - Vaccine Status Have you recieved a Covid-19 vaccination: Yes 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[email or web address] - Vaccination Dates Date of 2cond Vaccination (if applicable): 2020 - Review of Systems Constitutional: No Symptoms Eyes: No Symptoms Ears, Nose, & Throat: No Symptoms Respiratory: No Symptoms Cardiac: Chest Pain Abdominal/Gastrointestinal: No Symptoms Genitourinary Symptoms: No Symptoms Musculoskeletal: No Symptoms Skin: No Symptoms Neurological: No Symptoms Psychological: No Symptoms Endocrine: No Symptoms Hematologic/Lymphatic: No Symptoms Immunological/Allergic: No Symptoms All Other Systems: Reviewed and Negative - Past Medical History Pertinent Past Medical History: Yes Neurological History: Peripheral Neuropathy ENT History: No Pertinent History Cardiac History: High Cholesterol, Hypertension Respiratory History: No Pertinent History Endocrine Medical History: Diabetes Type II Musculoskeletal History: No Pertinent History GI Medical History: No Pertinent History History: Other Psycho-Social History: No Pertinent History Female Reproductive Disorders: Ovarian Cancer Other Medical History: colostomy from , right ovarian CA - Past Surgical History Past Surgical History: Yes Gastrointestinal: Other Female Surgical History: Hysterectomy Other Surgical History: colostomy, right ovary removed - Social History Smoking Status: Current every day smoker How long have you smoked: since 14yo Exposure to second hand smoke: Yes Drug Use: none Patient Lives Alone: No - Nursing Vital Signs Nursing Vital Signs: Initial Vital Signs Pulse Rate 55 L 07/05/23 16:10 Respiratory Rate 28 H 07/05/23 16:10 Blood Pressure 138/83 07/05/23 16:10 O2 Sat by Pulse Oximetry 98 07/05/23 16:10 Pain Scale Pain Intensity 0 - Physical Exam General Appearance: no apparent distress, alert, anxiety Eye Exam: PERRL/EOMI, eyes nml inspection Ears, Nose, Throat Exam: normal ENT inspection, moist mucous membranes Neck Exam: normal inspection, non-tender, supple, full range of motion Respiratory Exam: normal breath sounds, chest tenderness, lungs clear, airway intact, No respiratory distress Cardiovascular Exam: regular rate/rhythm, normal heart sounds, normal peripheral pulses Gastrointestinal/Abdomen Exam: soft, normal bowel sounds, No tenderness Pelvic Exam: not done Rectal Exam: not done Back Exam: normal inspection, normal range of motion, No CVA tenderness, No vertebral tenderness Extremity Exam: normal inspection, normal range of motion, pelvis stable Neurologic Exam: alert, oriented x 3, cooperative, 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, normal mood/affect, nml cerebellar function, nml station & gait, sensation nml Skin Exam: normal color, warm, dry Lymphatic Exam: No adenopathy SpO2 Interpretation: normal O2 Delivery: Room Air - Course Nursing assessment & vital signs reviewed: Yes EKG Interpreted by Me: RATE (49), Sinus Rhythm, NORMAL AXIS, NORMAL INTERVALS, NORMAL QRS, NORMAL ST-T, Other (No acute ischemic changes on today's twelve-lead EKG.) Ordered Tests: Active Orders 24 hr Category Date Time Status EKG-ER Only STAT Care 07/05/23 16:27 Active IV Insertion STAT Care 07/05/23 16:27 Active Pulse Oximetry (ED) STAT Care 07/05/23 16:27 Active CBC W DIFF Stat Lab 07/05/23 16:55 Completed CMP Stat Lab 07/05/23 16:55 Completed HCG QUALITATIVE, SERUM Stat Lab 07/05/23 16:55 Completed HCG, Quantitative (Inhouse) Stat Lab 07/05/23 16:55 Completed MAGNESIUM Stat Lab 07/05/23 16:55 Completed PROTIME WITH INR Stat Lab 07/05/23 16:55 Completed TROPONIN Q4H Lab 07/05/23 16:55 Completed TROPONIN Q4H Lab 07/05/23 20:30 Ordered TROPONIN Q4H Lab 07/06/23 00:30 Ordered Medication Summary Generic Name Dose Route Start Last Admin Trade Name Freq PRN Reason Stop Dose Admin Ceftriaxone Sodium/Dextrose 1 g in 50 mls @ 100 mls/hr 07/05/23 17:47 Rocephin 1 Gm-D5w 50 Ml Bag IV 07/05/23 18:16 STAT STA Lab/Rad Data: Laboratory Result Diagrams 07/05/23 16:55 07/05/23 16:55 Laboratory Results 07/05/23 07/05/23 07/05/23 Range/Units 16:55 16:55 16:55 WBC (4.0-10.5) x10^3/uL RBC (4.1-5.4) x10^6/uL Hgb (12.0-16.0) g/dL Hct (35-47) % MCV (78-100) fL MCH (26-32) pg MCHC (32-36) g/dL RDW (11.5-14.0) % Plt Count (150-450) x10^3/uL MPV (7.5-11.0) fL Gran % (36.0-66.0) % Immature Gran % (Auto) (0.00-0.4) % Nucleat RBC Rel Count (0.00-0.1) % Eos # (Auto) (0-0.5) x10^3/uL Immature Gran # (Auto) (0.00-0.03) x10^3u/L Absolute Lymphs (auto) (1.0-4.6) x10^3/uL Absolute Monos (auto) (0.0-1.3) x10^3/uL Absolute Nucleated RBC (0.00-0.01) x10^3u/L Lymphocytes % (24.0-44.0) % Monocytes % (0.0-12.0) % Eosinophils % (0.00-5.0) % Basophils % (0.0-0.4) % Absolute Granulocytes (1.4-6.9) x10^3/uL Basophils # (0-0.4) x10^3/uL PT 10.3 (9.4-12.5) SECONDS INR 0.94 (0.8-3.0) Sodium (137-145) mmol/L Potassium (3.5-5.1) mmol/L Chloride (98-107) mmol/L Carbon Dioxide (22-30) mmol/L Anion Gap (5-15) MEQ/L BUN (7-17) mg/dL Creatinine (0.52-1.04) mg/dL Estimated GFR ML/MIN Glucose (74-106) mg/dL Calcium (8.4-10.2) mg/dL Magnesium (1.6-2.3) mg/dL Total Bilirubin (0.2-1.3) mg/dL AST (14-36) U/L ALT (0-35) U/L Alkaline Phosphatase (38-126) U/L Troponin I < 0.012 (0.000-0.034) ng/mL Serum Total Protein (6.3-8.2) g/dL Albumin (3.5-5.0) g/dL Serum HCG, Qual POSITIVE (NEGATIVE) Beta HCG, Quant mIU/ml Urine Color (YELLOW) Urine Appearance (CLEAR) Urine pH (5-6) Ur Specific [place] (1.005-1.025) POC Urine Protein Conf (Negative) Urine Ketones (NEGATIVE) Urine Nitrite (NEGATIVE) Urine Bilirubin (NEGATIVE) Urine Urobilinogen (0-1) mg/dL Urine Leukocytes (NEGATIVE) Urine RBC (0-5) [place]/ul Urine Microscopic RBC Urine Microscopic WBC Ur Epithelial Cells Urine Bacteria Urine Culture Reflexed Urine Glucose (NEGATIVE) mg/dL 07/05/23 07/05/23 07/05/23 Range/Units 16:55 16:55 16:53 WBC 12.2 H (4.0-10.5) x10^3/uL RBC 5.61 H (4.1-5.4) x10^6/uL Hgb 16.4 H (12.0-16.0) g/dL Hct 50.4 H (35-47) % MCV 89.8 (78-100) fL MCH 29.2 (26-32) pg MCHC 32.5 (32-36) g/dL RDW 13.2 (11.5-14.0) % Plt Count 257 (150-450) x10^3/uL MPV 9.9 (7.5-11.0) fL Gran % 64.3 (36.0-66.0) % Immature Gran % (Auto) 0.4 (0.00-0.4) % Nucleat RBC Rel Count 0.0 (0.00-0.1) % Eos # (Auto) 0.17 (0-0.5) x10^3/uL Immature Gran # (Auto) 0.05 H (0.00-0.03) x10^3u/L Absolute Lymphs (auto) 3.38 (1.0-4.6) x10^3/uL Absolute Monos (auto) 0.70 (0.0-1.3) x10^3/uL Absolute Nucleated RBC 0.00 (0.00-0.01) x10^3u/L Lymphocytes % 27.7 (24.0-44.0) % Monocytes % 5.7 (0.0-12.0) % Eosinophils % 1.4 (0.00-5.0) % Basophils % 0.5 (0.0-0.4) % Absolute Granulocytes 7.86 H (1.4-6.9) x10^3/uL Basophils # 0.06 (0-0.4) x10^3/uL PT (9.4-12.5) SECONDS INR (0.8-3.0) Sodium 139 (137-145) mmol/L Potassium 3.4 L (3.5-5.1) mmol/L Chloride 102 (98-107) mmol/L Carbon Dioxide 28 (22-30) mmol/L Anion Gap 12.0 (5-15) MEQ/L BUN 17 (7-17) mg/dL Creatinine 0.58 (0.52-1.04) mg/dL Estimated GFR 115.8 ML/MIN Glucose 137 H (74-106) mg/dL Calcium 9.7 (8.4-10.2) mg/dL Magnesium 2.1 (1.6-2.3) mg/dL Total Bilirubin 0.80 (0.2-1.3) mg/dL AST 28 (14-36) U/L ALT 30 (0-35) U/L Alkaline Phosphatase 112 (38-126) U/L Troponin I (0.000-0.034) ng/mL Serum Total Protein 7.8 (6.3-8.2) g/dL Albumin 4.4 (3.5-5.0) g/dL Serum HCG, Qual (NEGATIVE) Beta HCG, Quant 5.66 mIU/ml Urine Color YELLOW (YELLOW) Urine Appearance CLEAR (CLEAR) Urine pH 7.0 (5-6) Ur Specific [place] 1.015 (1.005-1.025) POC Urine Protein Conf NEGATIVE (Negative) Urine Ketones NEGATIVE (NEGATIVE) Urine Nitrite POSITIVE A (NEGATIVE) Urine Bilirubin NEGATIVE (NEGATIVE) Urine Urobilinogen 0.2 (0-1) mg/dL Urine Leukocytes TRACE A (NEGATIVE) Urine RBC TRACE-INTACT A (0-5) [place]/ul Urine Microscopic RBC Pending Urine Microscopic WBC Pending Ur Epithelial Cells Pending Urine Bacteria Pending Urine Culture Reflexed Pending Urine Glucose >=1000 A (NEGATIVE) mg/dL - Progress Progress Note: 07/05/23 16:32 This patient's medical issue is 1 of moderate complexity. Level complex in the workup performed is based on review the patient's past medical history, review the patient's medication list, review the patient's drug allergy list, history of present illness and physical findings on examination. The workup in this patient includes placement of intravenous line, twelve-lead EKG, troponin level, quantitative hCG and serum hCG, CBC, CMP levels as well as magnesium level. We will await the results of the serum hCG and quantitative hCG before ordering a chest x-ray or D-dimer level. 07/05/23 17:49 I reviewed and interpreted the patient's laboratory data results. I also interpreted the patient's twelve-lead EKG. There is no evidence of any acute emergent findings other than a urinary tract infection with a slightly elevated white blood cell count. Patient again has an elevated qualitative and quantitative hCG. Patient does have a history of ovarian cancer in the past. It was recommended to the patient that she follows up with her primary care provider possible referral to a steam fitter helper if necessary. Counseled pt/family regarding: lab results, diagnosis, need for follow-up Medical Desision Making - Independent Historian Additional History obtained from: Relative/friend - Diagnostic Testing Diagnostic test were ordered, analyzed, and reviewed by me: Yes - Risk of complications The pt has a mod risk of morbidity or mortality based on: Need for prescription drug management - Departure Departure Disposition: Home Clinical Impression: Nonspecific chest pain, Elevated level of quantitative human chorionic gonadotropin (hCG) for gestational age in early , Elevated serum hCG Condition: Stable Critical Care Time: No Referrals: HANY RODRIGUEZ MD [Primary Care Provider] - Follow up/PCP as directed Additional Instructions: Drink plenty of fluids. Call your primary care provider tomorrow, 07/06/2023 to make arrangements for follow-up appointment and possible referral to a steam fitter helper if indicated. The elevated qualitative hCG should be further explored. Take your antibiotics and other medications as prescribed.
[2023-07-05 16:59] LABS: Absolute Neutrophil Ct (ANC) 7.86 x10^3/uL (1.4-6.9); BASOPHIL % 0.5 % (0.0-0.4); Basophil (Absolute #) 0.06 x10^3/uL (0-0.4); Eosinophil % 1.4 % (0.00-5.0); Eosinophil (Absolute #) 0.17 x10^3/uL (0-0.5); Hematocrit 50.4 % (35-47); Hemoglobin 16.4 g/dL (12.0-16.0); IMMATURE GRAN # 0.05 x10^3u/L (0.00-0.03); IMMATURE GRAN % 0.4 % (0.00-0.4); Lymphocyte (Absolute #) 3.38 x10^3/uL (1.0-4.6); Lymphocytes % 27.7 % (24.0-44.0); Mean Cell Volume 89.8 fL (78-100); Mean Corpuscular Hemoglobin 29.2 pg (26-32); Mean Corpuscular Hgb Concent. 32.5 g/dL (32-36); Mean Platelet Volume 9.9 fL (7.5-11.0); Monocytes % 5.7 % (0.0-12.0); Neutrophil % 64.3 % (36.0-66.0); Platelet Count 257 x10^3/uL (150-450); Red Blood Count 5.61 x10^6/uL (4.1-5.4); Red Cell Distribution Width 13.2 % (11.5-14.0); White Blood Count 12.2 x10^3/uL (4.0-10.5)
[2023-07-05 17:10] VITALS: BP 144/92; PULSE 55; RESP 20; O2SAT 97
[2023-07-05 17:16] LABS: INR 0.94 (0.8-3.0); PROTIME 10.3 SECONDS (9.4-12.5)
[2023-07-05 17:26] LABS: Appearance CLEAR (CLEAR); Bilirubin NEGATIVE (NEGATIVE); Glucose >=1000 mg/dL (NEGATIVE); Ketones NEGATIVE (NEGATIVE); Protein,Urine Dip NEGATIVE (Negative); RBC TRACE-INTACT Ery/ul (0-5); Specific Gravity 1.015 (1.005-1.025); Urobilinogen 0.2 mg/dL (0-1)
[2023-07-05 17:27] LABS: Nitrite POSITIVE (NEGATIVE)
[2023-07-05 17:32] LABS: ALBUMIN 4.4 g/dL (3.5-5.0); BILIRUBIN,TOTAL 0.8 mg/dL (0.2-1.3); Calcium 9.7 mg/dL (8.4-10.2); Creatinine 1 0.58 mg/dL (0.52-1.04); EST GLOMERULAR FILTRATION RATE 115.8 ML/MIN; HCG, Quantitative (Inhouse) 5.66 mIU/ml; MAGNESIUM 2.1 mg/dL (1.6-2.3); Potassium 3.4 mmol/L (3.5-5.1); Total Protein 7.8 g/dL (6.3-8.2)
[2023-07-05 17:36] LABS: HCG SERUM TEST POSITIVE (NEGATIVE)
[2023-07-05] MEDS ORDERED: ROCEPHIN 1 Gm-D5w 50 ml Bag** 1 G/50 ML IVPB IV STA (17:47)
[2023-07-05] MEDS ORDERED: Rocephin 1000 MG INJ ONE (17:57)
[2023-07-05] MEDS ORDERED: Rocephin 1000 MG INJ IM ONE (17:57)
[2023-07-05 18:23] LABS: ADD URINE CULTURE? YES (NO); Bacteria Many /HPF (None Seen); Epithelial Cells Many /HPF (None Seen); Hyaline Casts None Seen /LPF (0-2); RBC 0-2 /HPF (0-5)
== END 2023-07-05 18:10 | disposition home or self-care (01) ==
LOC: ED 16:08
DX: R07.9 Chest pain, unspecified (principal); R79.89 Other specified abnormal findings of blood chemistry; E11.42 Type 2 diabetes mellitus with diabetic polyneuropathy; I10 Essential (primary) hypertension; E78.5 Hyperlipidemia, unspecified; Z79.84 Long term (current) use of oral hypoglycemic drugs; Z79.4 Long term (current) use of insulin; Z79.899 Other long term (current) drug therapy; Z72.0 Tobacco use; Z85.43 Personal history of malignant neoplasm of ovary
CPT/HCPCS: 36415; 80053; 81015; 83735; 84484; 84702; 84703; 85025; 85610; 87086; 93005; 94760; 96372; 99283; J0696

== ENCOUNTER 2023-08-07 09:39 | Emergency (ER) | payer MEDICARE ==
--- NOTE | 2023-08-07 09:44 | ERPHSYRPT ---
- History of Present Illness Time Seen by Provider: 08/07/23 09:39 Historian: patient Exam Limitations: no limitations Physician History: Pt states she has had nausea, vomiting and generalized abdominal pain for the past 5 hours; denies fever, chest pain, headache, sore throat. Allergies/Adverse Reactions: ketorolac [From Toradol] Allergy (Verified 08/07/23 09:56) latex Allergy (Verified 08/07/23 09:56) losartan Allergy (Verified 08/07/23 09:56) Sulfa (Sulfonamide Antibiotics) Allergy (Verified 08/07/23 09:56) sulfamethoxazole [From Bactrim] Allergy (Verified 08/07/23 09:56) trimethoprim [From Bactrim] Allergy (Verified 08/07/23 09:56) Home Medications: Metformin HCl 500 mg [Glucophage 500 MG] 2 ea PO BID 03/26/21 [History] Hydrochlorothiazide 25 mg [hydroDIURIL 25 MG] 25 mg PO DAILY 02/23/22 [History] Atorvastatin Calcium [Lipitor 40Mg] 40 mg PO DAILY 02/27/22 [History] Empagliflozin [Jardiance] 10 mg PO DAILY 09/17/22 [History] Gabapentin 800 mg PO QID 05/18/23 [History] Insulin Aspart [Novolog] 20 unit SQ HS 05/18/23 [History] Hx Tetanus, Diphtheria Vaccination/Date Given: Yes Hx Influenza Vaccination/Date Given: Yes Hx Pneumococcal Vaccination/Date Given: No Travel Risk - Vaccine Status Have you recieved a Covid-19 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: 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[employer] - Vaccination Dates Date of 2cond Vaccination (if applicable): 2020 - Review of Systems Constitutional: No Fever Ears, Nose, & Throat: No Throat Pain Cardiac: No Chest Pain Abdominal/Gastrointestinal: Abdominal Pain, Nausea, Vomiting Neurological: No Headache - Past Medical History Pertinent Past Medical History: Yes Neurological History: Peripheral Neuropathy ENT History: No Pertinent History Cardiac History: High Cholesterol, Hypertension Respiratory History: No Pertinent History Endocrine Medical History: Diabetes Type II Musculoskeletal History: No Pertinent History GI Medical History: No Pertinent History History: Other Psycho-Social History: No Pertinent History Female Reproductive Disorders: Ovarian Cancer Other Medical History: colostomy from , right ovarian CA - Past Surgical History Past Surgical History: Yes Gastrointestinal: Other Female Surgical History: Hysterectomy Other Surgical History: colostomy, right ovary removed - Social History Smoking Status: Current every day smoker How long have you smoked: since 14yo Exposure to second hand smoke: Yes Drug Use: none Patient Lives Alone: No - Nursing Vital Signs Nursing Vital Signs: Initial Vital Signs Temperature 97.0 F 08/07/23 09:59 Pulse Rate 63 08/07/23 09:59 Respiratory Rate 18 08/07/23 09:59 Blood Pressure 162/98 08/07/23 09:59 O2 Sat by Pulse Oximetry 99 08/07/23 09:59 Pain Scale Pain Intensity 0 - Physical Exam General Appearance: alert Eye Exam: other (exotropia) Ears, Nose, Throat Exam: dry mucous membranes, other (cerumen occluded left EAC) Neck Exam: normal inspection Respiratory Exam: lungs clear Cardiovascular Exam: normal heart sounds Gastrointestinal/Abdomen Exam: soft, other (ostomy LLQ without erythema; B.S. mildly hyperactive but normotonic.) Back Exam: normal inspection Extremity Exam: No pedal edema Neurologic Exam: alert, cooperative - CT Exams Abdomen/Pelvis CT Interpretation: Tele-radiologist Report (No acute/significant abnormality is seen in the CT scan abdomen.) Ordered Tests: Active Orders 24 hr Category Date Time Status IV Insertion STAT Care 08/07/23 09:42 Active ABDOMEN AND PELVIS W/0 CONTRAS [CT] Stat Exams 08/07/23 09:42 Completed AMYLASE Stat Lab 08/07/23 10:11 Completed CBC W DIFF Stat Lab 08/07/23 10:11 Completed CMP Stat Lab 08/07/23 10:11 Completed CULTURE,URINE Stat Lab 08/07/23 11:52 Received LIPASE Stat Lab 08/07/23 10:11 Completed UA W/RFX UR CULTURE Stat Lab 08/07/23 11:52 Completed Medication Summary Generic Name Dose Route Start Last Admin Trade Name Freq PRN Reason Stop Dose Admin Ceftriaxone Sodium/Dextrose 1 g in 50 mls @ 100 mls/hr 08/07/23 12:13 Rocephin 1 Gm-D5w 50 Ml Bag IV 08/07/23 12:42 STAT STA Discontinued Medications Generic Name Dose Route Start Last Admin Trade Name Freq PRN Reason Stop Dose Admin Sodium Chloride 1,000 mls @ 999 mls/hr 08/07/23 09:42 08/07/23 11:27 Sodium Chloride 0.9% 1000 Ml IV 08/07/23 10:42 Infused .Q1H1M STA Infusion Sodium Chloride Confirm 08/07/23 09:59 Sodium Chloride 0.9% 1000 Ml Administered 08/07/23 10:00 Dose 1,000 mls @ ud .ROUTE .STK-MED ONE Ceftriaxone Sodium/Dextrose Confirm 08/07/23 12:17 Rocephin 1 Gm-D5w 50 Ml Bag Administered 08/07/23 12:18 Dose 1 g in 50 mls @ ud IV .STK-MED ONE Morphine Sulfate 4 mg 08/07/23 09:53 08/07/23 10:03 Morphine Sulfate 4 Mg/Ml Injection IV 08/07/23 09:54 4 mg STAT ONE Administration Morphine Sulfate Confirm 08/07/23 09:59 Morphine Sulfate 4 Mg/Ml Injection Administered 08/07/23 10:00 Dose 4 mg .ROUTE .STK-MED ONE Morphine Sulfate 4 mg 08/07/23 12:14 Morphine Sulfate 4 Mg/Ml Injection IV 08/07/23 12:15 STAT ONE Morphine Sulfate Confirm 08/07/23 12:17 Morphine Sulfate 4 Mg/Ml Injection Administered 08/07/23 12:18 Dose 4 mg .ROUTE .STK-MED ONE Ondansetron HCl 4 mg 08/07/23 09:42 08/07/23 10:03 Ondansetron Hcl 4 Mg/2 Ml Vial IV 08/07/23 09:43 4 mg STAT ONE Administration Ondansetron HCl Confirm 08/07/23 09:59 Ondansetron Hcl 4 Mg/2 Ml Vial Administered 08/07/23 10:00 Dose 4 mg .ROUTE .STK-MED ONE Potassium Bicarbonate 50 meq 08/07/23 12:19 Potassium Bicarbonate 25 Meq Tab PO 08/07/23 12:20 STAT ONE Potassium Chloride 20 meq 08/07/23 12:14 08/07/23 12:19 Potassium Chloride Tab 10 Meq Tab PO 08/07/23 12:15 Not Given STAT ONE Potassium Chloride Confirm 08/07/23 12:17 Potassium Chloride Tab 10 Meq Tab Administered 08/07/23 12:18 Dose 20 meq PO .STK-MED ONE Lab/Rad Data: Laboratory Result Diagrams 08/07/23 10:11 08/07/23 10:11 Laboratory Results 08/07/23 08/07/23 08/07/23 Range/Units 11:52 10:11 10:11 WBC 12.8 H (4.0-10.5) x10^3/uL RBC 5.31 (4.1-5.4) x10^6/uL Hgb 15.7 (12.0-16.0) g/dL Hct 46.2 (35-47) % MCV 87.0 (78-100) fL MCH 29.6 (26-32) pg MCHC 34.0 (32-36) g/dL RDW 13.3 (11.5-14.0) % Plt Count 271 (150-450) x10^3/uL MPV 9.9 (7.5-11.0) fL Gran % 77.8 H (36.0-66.0) % Immature Gran % (Auto) 1.3 H (0.00-0.4) % Nucleat RBC Rel Count 0.0 (0.00-0.1) % Eos # (Auto) 0.02 (0-0.5) x10^3/uL Immature Gran # (Auto) 0.16 H (0.00-0.03) x10^3u/L Absolute Lymphs (auto) 2.15 (1.0-4.6) x10^3/uL Absolute Monos (auto) 0.43 (0.0-1.3) x10^3/uL Absolute Nucleated RBC 0.00 (0.00-0.01) x10^3u/L Lymphocytes % 16.8 L (24.0-44.0) % Monocytes % 3.4 (0.0-12.0) % Eosinophils % 0.2 (0.00-5.0) % Basophils % 0.5 (0.0-0.4) % Absolute Granulocytes 9.93 H (1.4-6.9) x10^3/uL Basophils # 0.07 (0-0.4) x10^3/uL Sodium 142 (137-145) mmol/L Potassium 3.2 L (3.5-5.1) mmol/L Chloride 108 H (98-107) mmol/L Carbon Dioxide 18 L (22-30) mmol/L Anion Gap 18.4 H (5-15) MEQ/L BUN 15 (7-17) mg/dL Creatinine 0.46 L (0.52-1.04) mg/dL Estimated GFR 122.5 ML/MIN Glucose 219 H (74-106) mg/dL Calcium 9.5 (8.4-10.2) mg/dL Total Bilirubin 1.00 (0.2-1.3) mg/dL AST 29 (14-36) U/L ALT 34 (0-35) U/L Alkaline Phosphatase 118 (38-126) U/L Serum Total Protein 7.7 (6.3-8.2) g/dL Albumin 4.6 (3.5-5.0) g/dL Amylase 95 (30-110) U/L Lipase 79 (23-300) U/L Urine Color Yellow (Yellow) Urine Appearance Clear (Clear) Urine pH 8.0 (4.6-8.0) Ur Specific [place] >=1.030 A (1.005-1.030) Urine Protein 30 (Negative) Urine Glucose (UA) >=1000 A (Negative) mg/dL Urine Ketones Trace A (Negative) Urine Blood Negative (Negative) Urine Nitrite Negative (Negative) Urine Bilirubin Negative (Negative) Urine Urobilinogen 0.2 (0.2) mg/dL Ur Leukocyte Esterase Negative (Negative) U Hyaline Cast (Auto) NONE SEEN (0-2) /LPF Urine Microscopic RBC 0-2 (0-5) /HPF Urine Microscopic WBC 6-10 A (0-5) /HPF Ur Epithelial Cells None Seen (None Seen) /HPF Urine Bacteria Moderate A (None Seen) /HPF Urine Culture Reflexed YES (NO) - Progress Progress: improved Counseled pt/family regarding: lab results, diagnosis, need for follow-up, rad results Medical Desision Making - Diagnostic Testing Diagnostic test were ordered, analyzed, and reviewed by me: Yes Radiological Interpretation: Teleradiologist Report - Departure Departure Disposition: Home Clinical Impression: UTI (urinary tract infection), Vomiting, Abdominal pain Condition: Stable Critical Care Time: No Referrals: HANY RODRIGUEZ MD [Primary Care Provider] - Follow up/PCP as directed Instructions: Nausea and Vomiting, Adult (DC), Urinary Tract Infection, Adult (DC) Additional Instructions: Follow up with private doctor tomorrow. Prescriptions: Ondansetron ODT 4 MG [Zofran Odt 4 mg] 4 mg PO Q6H PRN PRN #10 tablet PRN Reason: Nausea Nitrofurantoin Macro 100 mg [Macrobid 100MG Capsule] 100 mg PO BID #14 cap
[2023-08-07] MEDS ORDERED: Sodium Chloride 0.9% 1000 ML 1,000 ML ONE (09:59)
[2023-08-07] MEDS ORDERED: Zofran 4 MG/2 ML VIAL ONE (09:59)
[2023-08-07] MEDS ORDERED: MORPHINE SULFATE 4 MG INJ ONE ×2 (09:59→12:17)
[2023-08-07 10:00] VITALS: TEMP 97
[2023-08-07] MEDS: Sodium Chloride 0.9% 1000 ML 1,000 ML IV STA (10:03)
[2023-08-07] MEDS: MORPHINE SULFATE 4 MG INJ IV ONE ×2 (10:03→12:22)
[2023-08-07] MEDS: Zofran 4 MG/2 ML VIAL IV ONE (10:03)
[2023-08-07 10:12] LABS: Absolute Neutrophil Ct (ANC) 9.93 x10^3/uL (1.4-6.9); BASOPHIL % 0.5 % (0.0-0.4); Basophil (Absolute #) 0.07 x10^3/uL (0-0.4); Eosinophil % 0.2 % (0.00-5.0); Eosinophil (Absolute #) 0.02 x10^3/uL (0-0.5); Hematocrit 46.2 % (35-47); Hemoglobin 15.7 g/dL (12.0-16.0); IMMATURE GRAN # 0.16 x10^3u/L (0.00-0.03); IMMATURE GRAN % 1.3 % (0.00-0.4); Lymphocyte (Absolute #) 2.15 x10^3/uL (1.0-4.6); Lymphocytes % 16.8 % (24.0-44.0); Mean Corpuscular Hemoglobin 29.6 pg (26-32); Mean Platelet Volume 9.9 fL (7.5-11.0); Monocyte (Absolute #) 0.43 x10^3/uL (0.0-1.3); Monocytes % 3.4 % (0.0-12.0); Neutrophil % 77.8 % (36.0-66.0); Platelet Count 271 x10^3/uL (150-450); Red Blood Count 5.31 x10^6/uL (4.1-5.4); Red Cell Distribution Width 13.3 % (11.5-14.0); White Blood Count 12.8 x10^3/uL (4.0-10.5)
[2023-08-07 10:47] LABS: ALBUMIN 4.6 g/dL (3.5-5.0); ANION GAP 18.4 MEQ/L (5-15); Calcium 9.5 mg/dL (8.4-10.2); Creatinine 1 0.46 mg/dL (0.52-1.04); EST GLOMERULAR FILTRATION RATE 122.5 ML/MIN; Potassium 3.2 mmol/L (3.5-5.1); Total Protein 7.7 g/dL (6.3-8.2)
[2023-08-07 10:56] VITALS: RESP 16
--- NOTE | 2023-08-07 11:52 | XRAY ---
CLINICAL HISTORY:vomiting COMPARISON:CT dated 02/23/2022. TECHNIQUE:CT scan of the abdomen and pelvis was performed without IV contrast. Coronal and sagittal reconstructive images were also obtained. FINDINGS: Colostomy seen on the left side of the abdomen and appears grossly unremarkable. Rectum and part of the descending colon are not visualized? Surgical removal. Fecal loaded non-dilated transverse colon seen. Stomach is collapsed however appears grossly unremarkable. The liver is normal in size. No focal or diffuse parenchymal abnormality. The intrahepatic biliary radicals and the bile ducts are normal. The pancreas and adrenal glands are unremarkable. Multiple tiny punctate calcific foci are seen in the spleen likely benign/calcified granulomas. Splenule is seen. Left kidney is transversely oriented. The kidneys are otherwise unremarkable. They are normal in size. No calculi or hydronephrosis. The gallbladder is normal. No pericholecystic collection or radio dense calculi in the gall bladder. Appendix is not separately visualized, however, no fat stranding seen in right iliac fossa. There is no evidence of significant enlargement of the mesenteric or retroperitoneal lymph nodes. The urinary bladder is unremarkable. Mild degenerative changes are seen in the visualized spine. Transitional vertebra is seen. Visualized lung bases appear unremarkable. IMPRESSION: No acute/significant abnormality is seen in the CT scan abdomen. Electronically Signed by: Lola Mendoza MD. (08/07/2023 11:47:48 EST)
[2023-08-07 12:10] LABS: Appearance Clear (Clear); Bacteria Moderate /HPF (None Seen); Bilirubin Negative (Negative); Blood Negative (Negative); Epithelial Cells None Seen /HPF (None Seen); Glucose, Urine >=1000 mg/dL (Negative); Hyaline Casts NONE SEEN /LPF (0-2); Ketones Trace (Negative); Leukocyte Esterase Negative (Negative); Nitrite Negative (Negative); Protein,Urine Dip 30 (Negative); RBC 0-2 /HPF (0-5); Specific Gravity >=1.030 (1.005-1.030); Urobilinogen 0.2 mg/dL (0.2)
[2023-08-07 12:12] LABS: ADD URINE CULTURE? YES (NO)
[2023-08-07] MEDS ORDERED: Klor Con PO ONE (12:17)
[2023-08-07] MEDS ORDERED: ROCEPHIN 1 Gm-D5w 50 ml Bag** 1 G/50 ML IVPB IV ONE (12:17)
[2023-08-07] MEDS ORDERED: K-LYTE ONE (12:19)
[2023-08-07] MEDS: Klor Con PO ONE (12:19)
[2023-08-07] MEDS: ROCEPHIN 1 Gm-D5w 50 ml Bag** 1 G/50 ML IVPB IV STA (12:21)
[2023-08-07] MEDS: K-LYTE PO ONE (12:21)
[2023-08-07 12:32] VITALS: BP 151/98; PULSE 80; O2SAT 97
== END 2023-08-07 12:34 | disposition home or self-care (01) ==
LOC: ED 09:39
DX: N39.0 Urinary tract infection, site not specified (principal); R11.2 Nausea with vomiting, unspecified; R10.84 Generalized abdominal pain; E78.5 Hyperlipidemia, unspecified; I10 Essential (primary) hypertension; E11.42 Type 2 diabetes mellitus with diabetic polyneuropathy; Z79.84 Long term (current) use of oral hypoglycemic drugs; Z79.4 Long term (current) use of insulin; Z79.899 Other long term (current) drug therapy; Z72.0 Tobacco use
CPT/HCPCS: 36000; 36415; 74176; 80053; 81001; 82150; 83690; 85025; 87077; 87086; 87186; 96360; 96374; 96375; 96376; 99284; J0696; J2270; J2405; A9270-GY

== ENCOUNTER 2023-08-14 07:32 | Emergency (ER) | payer MEDICARE ==
[2023-08-14 07:46] VITALS: RESP 20; TEMP 98.6
[2023-08-14 08:17] LABS: Absolute Neutrophil Ct (ANC) 9.32 x10^3/uL (1.4-6.9); BASOPHIL % 0.5 % (0.0-0.4); Basophil (Absolute #) 0.06 x10^3/uL (0-0.4); Eosinophil % 1.1 % (0.00-5.0); Eosinophil (Absolute #) 0.14 x10^3/uL (0-0.5); Hematocrit 47.1 % (35-47); Hemoglobin 15.7 g/dL (12.0-16.0); IMMATURE GRAN # 0.06 x10^3u/L (0.00-0.03); IMMATURE GRAN % 0.5 % (0.00-0.4); Lymphocyte (Absolute #) 2.21 x10^3/uL (1.0-4.6); Lymphocytes % 17.7 % (24.0-44.0); Mean Corpuscular Hemoglobin 29.3 pg (26-32); Mean Corpuscular Hgb Concent. 33.3 g/dL (32-36); Mean Platelet Volume 9.9 fL (7.5-11.0); Monocytes % 5.6 % (0.0-12.0); Neutrophil % 74.6 % (36.0-66.0); Platelet Count 244 x10^3/uL (150-450); Red Blood Count 5.35 x10^6/uL (4.1-5.4); Red Cell Distribution Width 13.4 % (11.5-14.0); White Blood Count 12.5 x10^3/uL (4.0-10.5)
--- NOTE | 2023-08-14 08:19 | ERPHSYRPT ---
- History of Present Illness Time Seen by Provider: 08/14/23 07:50 Historian: patient, family Exam Limitations: no limitations Patient Subjective Stated Complaint: Pt states "I have had two positive blood tests and all the urine ones are negative. I have been sleeping alot lately and I have been sick in the mornings and I just want to know if I am or not." Triage Nursing Assessment: Pt presented alert and oriented X 3, skin pwd. Pt a mbulates with an upright steady gait, able to speak in clear full sentences. Pt in no apparent respiratory distress. Physician History: Patient with presents with a complaint of vomiting every morning. She had 2 positive blood test very low over a period of 6 to few weeks. She had a CT scan on the first week of August which showed no . She went to for a urine and blood test and it was negative she now wants another blood test to see if she is . Timing/Duration: week(s) Activities at Onset: none Abdominal Pain Onset Location: suprapubic Modifying Factors: Improves With: vomiting Associated Symptoms: nausea Allergies/Adverse Reactions: ketorolac [From Toradol] Allergy (Verified 08/07/23 09:56) latex Allergy (Verified 08/07/23 09:56) losartan Allergy (Verified 08/07/23 09:56) Sulfa (Sulfonamide Antibiotics) Allergy (Verified 08/07/23 09:56) sulfamethoxazole [From Bactrim] Allergy (Verified 08/07/23 09:56) trimethoprim [From Bactrim] Allergy (Verified 08/07/23 09:56) Home Medications: Metformin HCl 500 mg [Glucophage 500 MG] 2 ea PO BID 03/26/21 [History] Hydrochlorothiazide 25 mg [hydroDIURIL 25 MG] 25 mg PO DAILY 02/23/22 [History] Atorvastatin Calcium [Lipitor 40Mg] 40 mg PO DAILY 02/27/22 [History] Empagliflozin [Jardiance] 10 mg PO DAILY 09/17/22 [History] Gabapentin 800 mg PO QID 05/18/23 [History] Insulin Aspart [Novolog] 20 unit SQ HS 05/18/23 [History] Hx Tetanus, Diphtheria Vaccination/Date Given: Yes Hx Influenza Vaccination/Date Given: Yes Hx Pneumococcal Vaccination/Date Given: No Immunizations Up to Date: Yes Travel Risk - International Travel Have you traveled outside of the country in past 3 weeks: No - Coronavirus Screening Are you exhibiting any of the following symptoms?: No Close contact with a COVID-19 positive Pt in past 14-21 Days: No - Vaccine Status Have you recieved a Covid-19 vaccination: Yes 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: [employer] - Vaccination Dates Date of 2cond Vaccination (if applicable): 3 - Review of Systems Constitutional: No Fever, No Chills Eyes: No Symptoms Ears, Nose, & Throat: No Symptoms Respiratory: No Cough, No Dyspnea Cardiac: No Chest Pain, No Edema, No Syncope Abdominal/Gastrointestinal: Nausea, Vomiting, No Abdominal Pain, No Diarrhea Genitourinary Symptoms: No Dysuria Musculoskeletal: No Back Pain, No Neck Pain Skin: No Rash Neurological: No Dizziness, No Focal Weakness, No Sensory Changes Psychological: No Symptoms Endocrine: No Symptoms All Other Systems: Reviewed and Negative - Past Medical History Pertinent Past Medical History: Yes Neurological History: Peripheral Neuropathy ENT History: No Pertinent History Cardiac History: High Cholesterol, Hypertension Respiratory History: No Pertinent History Endocrine Medical History: Diabetes Type II Musculoskeletal History: No Pertinent History GI Medical History: No Pertinent History History: Other Psycho-Social History: No Pertinent History Female Reproductive Disorders: Ovarian Cancer Other Medical History: colostomy from , right ovarian CA - Past Surgical History Past Surgical History: Yes Gastrointestinal: Other Female Surgical History: Hysterectomy Other Surgical History: colostomy, right ovary removed - Social History Smoking Status: Current every day smoker How long have you smoked: since 14yo Exposure to second hand smoke: Yes Drug Use: none Patient Lives Alone: No - Female History Hx Last Menstrual Period: 06/06/2023 Hx Now: (unknown) - Nursing Vital Signs Nursing Vital Signs: Initial Vital Signs Temperature 98.6 F 08/14/23 07:40 Pulse Rate 78 08/14/23 07:40 Respiratory Rate 20 08/14/23 07:40 Blood Pressure 182/88 08/14/23 07:40 O2 Sat by Pulse Oximetry 96 08/14/23 07:40 Pain Scale Pain Intensity 0 - Physical Exam General Appearance: no apparent distress, alert Eye Exam: PERRL/EOMI, eyes nml inspection Ears, Nose, Throat Exam: normal ENT inspection, pharynx normal, moist mucous membranes Neck Exam: normal inspection, non-tender, supple, full range of motion Respiratory Exam: normal breath sounds, lungs clear, No respiratory distress Cardiovascular Exam: regular rate/rhythm, normal heart sounds Gastrointestinal/Abdomen Exam: soft, No tenderness, No mass Back Exam: normal inspection, normal range of motion, No CVA tenderness, No vertebral tenderness Extremity Exam: normal inspection, normal range of motion, pelvis stable Neurologic Exam: alert, oriented x 3, cooperative, normal mood/affect, nml cerebellar function, sensation nml, No motor deficits Skin Exam: normal color, warm, dry SpO2: 96 - Course Nursing assessment & vital signs reviewed: Yes Ordered Tests: Active Orders 24 hr Category Date Time Status CBC W DIFF Stat Lab 08/14/23 08:15 Completed CMP Stat Lab 08/14/23 08:15 Completed HCG QUALITATIVE, SERUM Stat Lab 08/14/23 08:15 Completed LIPASE Stat Lab 08/14/23 08:15 Completed Lactic Acid Stat Lab 08/14/23 08:15 Completed UA W/RFX UR CULTURE Stat Lab 08/14/23 07:58 Completed Lab/Rad Data: Laboratory Result Diagrams 08/14/23 08:15 08/14/23 08:15 Laboratory Results 08/14/23 08/14/23 08/14/23 Range/Units Unknown 08:15 08:15 WBC (4.0-10.5) x10^3/uL RBC (4.1-5.4) x10^6/uL Hgb (12.0-16.0) g/dL Hct (35-47) % MCV (78-100) fL MCH (26-32) pg MCHC (32-36) g/dL RDW (11.5-14.0) % Plt Count (150-450) x10^3/uL MPV (7.5-11.0) fL Gran % (36.0-66.0) % Immature Gran % (Auto) (0.00-0.4) % Nucleat RBC Rel Count (0.00-0.1) % Eos # (Auto) (0-0.5) x10^3/uL Immature Gran # (Auto) (0.00-0.03) x10^3u/L Absolute Lymphs (auto) (1.0-4.6) x10^3/uL Absolute Monos (auto) (0.0-1.3) x10^3/uL Absolute Nucleated RBC (0.00-0.01) x10^3u/L Lymphocytes % (24.0-44.0) % Monocytes % (0.0-12.0) % Eosinophils % (0.00-5.0) % Basophils % (0.0-0.4) % Absolute Granulocytes (1.4-6.9) x10^3/uL Basophils # (0-0.4) x10^3/uL Sodium 137 (137-145) mmol/L Potassium 3.3 L (3.5-5.1) mmol/L Chloride 107 (98-107) mmol/L Carbon Dioxide 22 (22-30) mmol/L Anion Gap 11.7 (5-15) MEQ/L BUN 17 (7-17) mg/dL Creatinine 0.52 (0.52-1.04) mg/dL Estimated GFR 118.9 ML/MIN Glucose 162 H (74-106) mg/dL Lactic Acid 1.4 (0.4-2.0) Calcium 9.7 (8.4-10.2) mg/dL Total Bilirubin 1.20 (0.2-1.3) mg/dL AST 24 (14-36) U/L ALT 31 (0-35) U/L Alkaline Phosphatase 98 (38-126) U/L Serum Total Protein 7.4 (6.3-8.2) g/dL Albumin 4.2 (3.5-5.0) g/dL Lipase 95 (23-300) U/L Serum HCG, Qual (NEGATIVE) Urine Color (Yellow) Urine Appearance (Clear) Urine pH (4.6-8.0) Ur Specific [place] (1.005-1.030) Urine Protein (Negative) Urine Glucose (UA) (Negative) mg/dL Urine Ketones (Negative) Urine Blood (Negative) Urine Nitrite (Negative) Urine Bilirubin (Negative) Urine Urobilinogen (0.2) mg/dL Ur Leukocyte Esterase (Negative) U Hyaline Cast (Auto) (0-2) /LPF Urine Microscopic RBC (0-5) /HPF Urine Microscopic WBC (0-5) /HPF Ur Epithelial Cells (None Seen) /HPF Urine Bacteria (None Seen) /HPF Urine Culture Reflexed (NO) Influenza Type A Ag NEGATIVE (NEGATIVE) Influenza Type B Ag NEGATIVE (NEGATIVE) RSV (PCR) NEGATIVE (NEGATIVE) SARS-CoV-2 (PCR) NEGATIVE (NEGATIVE) 08/14/23 08/14/23 08/14/23 Range/Units 08:15 08:15 07:58 WBC 12.5 H (4.0-10.5) x10^3/uL RBC 5.35 (4.1-5.4) x10^6/uL Hgb 15.7 (12.0-16.0) g/dL Hct 47.1 H (35-47) % MCV 88.0 (78-100) fL MCH 29.3 (26-32) pg MCHC 33.3 (32-36) g/dL RDW 13.4 (11.5-14.0) % Plt Count 244 (150-450) x10^3/uL MPV 9.9 (7.5-11.0) fL Gran % 74.6 H (36.0-66.0) % Immature Gran % (Auto) 0.5 H (0.00-0.4) % Nucleat RBC Rel Count 0.0 (0.00-0.1) % Eos # (Auto) 0.14 (0-0.5) x10^3/uL Immature Gran # (Auto) 0.06 H (0.00-0.03) x10^3u/L Absolute Lymphs (auto) 2.21 (1.0-4.6) x10^3/uL Absolute Monos (auto) 0.70 (0.0-1.3) x10^3/uL Absolute Nucleated RBC 0.00 (0.00-0.01) x10^3u/L Lymphocytes % 17.7 L (24.0-44.0) % Monocytes % 5.6 (0.0-12.0) % Eosinophils % 1.1 (0.00-5.0) % Basophils % 0.5 (0.0-0.4) % Absolute Granulocytes 9.32 H (1.4-6.9) x10^3/uL Basophils # 0.06 (0-0.4) x10^3/uL Sodium (137-145) mmol/L Potassium (3.5-5.1) mmol/L Chloride (98-107) mmol/L Carbon Dioxide (22-30) mmol/L Anion Gap (5-15) MEQ/L BUN (7-17) mg/dL Creatinine (0.52-1.04) mg/dL Estimated GFR ML/MIN Glucose (74-106) mg/dL Lactic Acid (0.4-2.0) Calcium (8.4-10.2) mg/dL Total Bilirubin (0.2-1.3) mg/dL AST (14-36) U/L ALT (0-35) U/L Alkaline Phosphatase (38-126) U/L Serum Total Protein (6.3-8.2) g/dL Albumin (3.5-5.0) g/dL Lipase (23-300) U/L Serum HCG, Qual NEGATIVE (NEGATIVE) Urine Color Dark Yellow A (Yellow) Urine Appearance Clear (Clear) Urine pH 6.0 (4.6-8.0) Ur Specific [place] >=1.030 A (1.005-1.030) Urine Protein 30 (Negative) Urine Glucose (UA) >=1000 A (Negative) mg/dL Urine Ketones 15 A (Negative) Urine Blood Negative (Negative) Urine Nitrite Negative (Negative) Urine Bilirubin Negative (Negative) Urine Urobilinogen 1.0 A (0.2) mg/dL Ur Leukocyte Esterase Negative (Negative) U Hyaline Cast (Auto) NONE SEEN (0-2) /LPF Urine Microscopic RBC 0-2 (0-5) /HPF Urine Microscopic WBC 0-2 (0-5) /HPF Ur Epithelial Cells Rare (None Seen) /HPF Urine Bacteria None Seen (None Seen) /HPF Urine Culture Reflexed NO (NO) Influenza Type A Ag (NEGATIVE) Influenza Type B Ag (NEGATIVE) RSV (PCR) (NEGATIVE) SARS-CoV-2 (PCR) (NEGATIVE) - Progress Progress: improved Medical Desision Making - External Record(s) Reviewed Records reviewed as a part of evaluation & management: Clinic ([facility] showed negative urine test) - Diagnostic Testing Diagnostic test were ordered, analyzed, and reviewed by me: Yes - Risk of complications Minimal Risk: Minimal risk of morbidity - Departure Departure Disposition: Home Clinical Impression: Bilious emesis Condition: Stable Critical Care Time: No Referrals: HANY RODRIGUEZ MD [Primary Care Provider] - Follow up/PCP as directed Additional Instructions: Patient was instructed to stop her Macrobid since it was felt that was probably the source of her gastric distress she is to use Zofran for nausea and vomiting. Her urine shows no continued infection.
[2023-08-14 08:25] LABS: Appearance Clear (Clear); Bacteria None Seen /HPF (None Seen); Bilirubin Negative (Negative); Blood Negative (Negative); Epithelial Cells Rare /HPF (None Seen); Glucose, Urine >=1000 mg/dL (Negative); Hyaline Casts NONE SEEN /LPF (0-2); Ketones 15 (Negative); Leukocyte Esterase Negative (Negative); Nitrite Negative (Negative); Protein,Urine Dip 30 (Negative); RBC 0-2 /HPF (0-5); Specific Gravity >=1.030 (1.005-1.030); WBC 0-2 /HPF (0-5)
[2023-08-14 08:29] LABS: HCG SERUM TEST NEGATIVE (NEGATIVE)
[2023-08-14 08:49] LABS: ALBUMIN 4.2 g/dL (3.5-5.0); BILIRUBIN,TOTAL 1.2 mg/dL (0.2-1.3)
[2023-08-14 09:00] LABS: INFLUENZA A NEGATIVE (NEGATIVE); INFLUENZA B NEGATIVE (NEGATIVE); RESPIRATORY SYNCTIAL VIRUS NEGATIVE (NEGATIVE); SARS-CoV-2 Xpert Express NEGATIVE (NEGATIVE)
[2023-08-14 09:12] LABS: ANION GAP 11.7 MEQ/L (5-15); Calcium 9.7 mg/dL (8.4-10.2); Creatinine 1 0.52 mg/dL (0.52-1.04); EST GLOMERULAR FILTRATION RATE 118.9 ML/MIN; Potassium 3.3 mmol/L (3.5-5.1); Total Protein 7.4 g/dL (6.3-8.2)
[2023-08-14 09:18] LABS: ADD URINE CULTURE? NO (NO)
[2023-08-14 09:21] VITALS: BP 136/83; PULSE 80
[2023-08-14 09:23] VITALS: O2SAT 96
== END 2023-08-14 09:29 | disposition home or self-care (01) ==
LOC: ED 07:32
DX: R11.14 Bilious vomiting (principal); E78.5 Hyperlipidemia, unspecified; I10 Essential (primary) hypertension; E11.42 Type 2 diabetes mellitus with diabetic polyneuropathy; Z79.84 Long term (current) use of oral hypoglycemic drugs; Z79.4 Long term (current) use of insulin; Z79.899 Other long term (current) drug therapy; Z72.0 Tobacco use; Z20.828 Contact with and (suspected) exposure to other viral communicable diseases
CPT/HCPCS: 0241U; 36415; 80053; 81001; 83605; 83690; 84703; 85025; 99282

== ENCOUNTER 2024-04-10 17:46 | Emergency (ER) | payer MEDICARE ==
[2024-04-10 18:07] VITALS: BP 128/81; PULSE 65; RESP 18; TEMP 98.2; O2SAT 100
--- NOTE | 2024-04-10 18:36 | ERPHSYRPT ---
- History of Present Illness Time Seen by Provider: 04/10/24 18:29 Source: patient Exam Limitations: no limitations Patient Subjective Stated Complaint: Pt states "I had an appointment with Dr. Rodriguez this afternoon and he cancelled all his afternoon appts. They said I had a script for insulin at the pharmacy but when I went, there was not a prescription there. I called Dr. Rodriguez office and they told me I was going to have to wait until the 12th." Triage Nursing Assessment: Pt presented alert and oriented X 3, skin wpd. pt ambulates with an upright steady gait, able to speak in clear full sentences. Pt resting comfortably on the bed. Timing/Duration: today Severity: mild Associated Symptoms: denies symptoms Allergies/Adverse Reactions: ketorolac [From Toradol] Allergy (Verified 08/07/23 09:56) latex Allergy (Verified 08/07/23 09:56) losartan Allergy (Verified 08/07/23 09:56) Sulfa (Sulfonamide Antibiotics) Allergy (Verified 08/07/23 09:56) sulfamethoxazole [From Bactrim] Allergy (Verified 08/07/23 09:56) trimethoprim [From Bactrim] Allergy (Verified 08/07/23 09:56) Home Medications: Hydrochlorothiazide 25 mg [hydroDIURIL 25 MG] 25 mg PO DAILY 02/23/22 [History] Atorvastatin Calcium [Lipitor 40Mg] 40 mg PO DAILY 02/27/22 [History] Empagliflozin [Jardiance] 10 mg PO DAILY 09/17/22 [History] Gabapentin 800 mg PO QID 05/18/23 [History] Insulin Glargine,Hum.rec.anlog [Lantus] 100 unit SQ 18 04/10/24 [History] Hx Tetanus, Diphtheria Vaccination/Date Given: Yes Hx Influenza Vaccination/Date Given: Yes Hx Pneumococcal Vaccination/Date Given: No Immunizations Up to Date: No Travel Risk - International Travel Have you traveled outside of the country in past 3 weeks: No - Review of Systems Eyes: No Symptoms Ears, Nose, & Throat: No Symptoms Respiratory: No Symptoms Cardiac: No Symptoms Abdominal/Gastrointestinal: No Symptoms Genitourinary Symptoms: No Symptoms Musculoskeletal: No Symptoms Skin: No Symptoms Neurological: No Symptoms Psychological: No Symptoms - Past Medical History Pertinent Past Medical History: Yes Neurological History: Peripheral Neuropathy ENT History: No Pertinent History Cardiac History: High Cholesterol, Hypertension Respiratory History: No Pertinent History Endocrine Medical History: Diabetes Type II Musculoskeletal History: No Pertinent History GI Medical History: No Pertinent History History: Other Psycho-Social History: No Pertinent History Female Reproductive Disorders: Ovarian Cancer Other Medical History: colostomy from , right ovarian CA - Past Surgical History Past Surgical History: Yes Gastrointestinal: Other Female Surgical History: Hysterectomy Other Surgical History: colostomy, right ovary removed - Female History Hx Last Menstrual Period: partial hysterectomy Hx Now: No - Social History Smoking Status: Current every day smoker How long have you smoked: since 14yo Exposure to second hand smoke: Yes Drug Use: none Patient Lives Alone: No - Social Determinants of Health Will the patient participate in the screening: Declined to provide - Nursing Vital Signs Nursing Vital Signs: Initial Vital Signs Temperature 98.2 F 04/10/24 18:02 Pulse Rate 65 04/10/24 18:02 Respiratory Rate 18 04/10/24 18:02 Blood Pressure 128/81 04/10/24 18:02 O2 Sat by Pulse Oximetry 100 04/10/24 18:02 Pain Scale Pain Intensity 0 - Physical Exam General Appearance: no apparent distress Eye Exam: PERRL/EOMI Ears, Nose, Throat Exam: normal ENT inspection Neck Exam: normal inspection Respiratory Exam: normal breath sounds Cardiovascular Exam: regular rate/rhythm Gastrointestinal/Abdomen Exam: soft, normal bowel sounds SpO2: 100 Ordered Tests: Active Orders 24 hr Category Date Time Status POCT GLUCOSE Stat Lab 04/10/24 18:14 Completed Lab/Rad Data: Laboratory Results 04/10/24 Range/Units 18:14 POC Glucometer 294 H (74 to 106) mg/dL - Progress Progress Note: [facility] pharmacy was contacted they are closed at this time patient prefers to have her insulin here in the department, she will alter her diet accordingly 04/10/24 18:30 Medical Desision Making - Discussion of managment Agreed on:: need for follow-up Will see patient: in hospital - Departure Clinical Impression: Medication care plan discussed with patient, Hyperglycemia Condition: Good Critical Care Time: No Referrals: HANY RODRIGUEZ MD [Primary Care Provider] - Follow up/PCP as directed
[2024-04-10] MEDS ORDERED: Lantus Insulin ONE (18:47)
[2024-04-10] MEDS: Lantus Insulin SQ SCH (18:51)
== END 2024-04-10 19:22 | disposition home or self-care (01) ==
LOC: ED 17:46
DX: E11.65 Type 2 diabetes mellitus with hyperglycemia (principal); Z71.89 Other specified counseling; E11.42 Type 2 diabetes mellitus with diabetic polyneuropathy; E78.5 Hyperlipidemia, unspecified; I10 Essential (primary) hypertension; Z79.84 Long term (current) use of oral hypoglycemic drugs; Z79.4 Long term (current) use of insulin; Z79.899 Other long term (current) drug therapy; Z72.0 Tobacco use
CPT/HCPCS: 82947; 96372; 99281; A9270-GY

== ENCOUNTER 2024-06-29 15:16 | Emergency (ER) | payer MEDICARE ==
[2024-06-29 15:31] VITALS: TEMP 97.9
[2024-06-29] MEDS ORDERED: DUONEB 0.5-3 MG/3 ml Neb IH ONE (16:10)
[2024-06-29] MEDS: DUONEB 0.5-3 MG/3 ml Neb IH ONE (16:11)
--- NOTE | 2024-06-29 16:57 | ERPHSYRPT ---
- History of Present Illness Time Seen by Provider: 06/29/24 15:45 Source: patient Exam Limitations: no limitations Patient Subjective Stated Complaint: pt here for dry cough for 2 weeks. abd pain with a deep breath Triage Nursing Assessment: pt alert, walked in. resp easy, skin w/d/p. chest clear, occ dry cough. moves all ext well Physician History: 44yo f pmhx asthma presents for cough x 1wk. Pt reports when the weather got cold she started to have a worsened cough, has been needing to use her albuterol inhaler more frequently. Pt denies any fevers at home, does endorse some sinus congestion and body aches. Pt denies any cp, sob, n/v/d. Timing/Duration: week(s) (1) Cough Quality/Degree: moderate Possible Cause: occasional episodes Modifying Factors: Improves With: albuterol inhaler Associated Symptoms: cough, nasal congestion, nasal drainage, wheezing, No fever, No chills Allergies/Adverse Reactions: ketorolac [From Toradol] Allergy (Verified 06/29/24 15:24) latex Allergy (Verified 06/29/24 15:24) losartan Allergy (Verified 06/29/24 15:24) Sulfa (Sulfonamide Antibiotics) Allergy (Verified 06/29/24 15:24) sulfamethoxazole [From Bactrim] Allergy (Verified 06/29/24 15:24) trimethoprim [From Bactrim] Allergy (Verified 06/29/24 15:24) Home Medications: Hydrochlorothiazide 25 mg [hydroDIURIL 25 MG] 25 mg PO DAILY 02/23/22 [History] Atorvastatin Calcium [Lipitor 40Mg] 40 mg PO DAILY 02/27/22 [History] Empagliflozin [Jardiance] 10 mg PO DAILY 09/17/22 [History] Gabapentin 800 mg PO QID 05/18/23 [History] Insulin Glargine,Hum.rec.anlog [Lantus] 100 unit SQ 18 04/10/24 [History] Hx Tetanus, Diphtheria Vaccination/Date Given: Yes Hx Influenza Vaccination/Date Given: Yes Hx Pneumococcal Vaccination/Date Given: No Immunizations Up to Date: Yes Travel Risk - International Travel Have you traveled outside of the country in past 3 weeks: No - Emerging Infectious Disease Are you exhibiting symptoms associated with any current EIDs: No - Review of Systems Constitutional: No Symptoms Respiratory: Cough, Wheezing, No Dyspnea, No Dyspnea on Exertion (BELL), No Stridor Cardiac: No Symptoms Abdominal/Gastrointestinal: No Symptoms - Past Medical History Pertinent Past Medical History: Yes Neurological History: Peripheral Neuropathy ENT History: No Pertinent History Cardiac History: High Cholesterol, Hypertension Respiratory History: No Pertinent History Endocrine Medical History: Diabetes Type II Musculoskeletal History: No Pertinent History GI Medical History: No Pertinent History History: Other Psycho-Social History: No Pertinent History Female Reproductive Disorders: Ovarian Cancer Other Medical History: colostomy from , right ovarian CA - Past Surgical History Past Surgical History: Yes Gastrointestinal: Other Female Surgical History: Hysterectomy Other Surgical History: colostomy, right ovary removed - Female History Hx Last Menstrual Period: partial hyster Hx Now: No - Social History Smoking Status: Current every day smoker How long have you smoked: since 14yo Exposure to second hand smoke: Yes Drug Use: marijuana Patient Lives Alone: No - Social Determinants of Health Will the patient participate in the screening: Declined to provide - Nursing Vital Signs Nursing Vital Signs: Initial Vital Signs Blood Pressure 134/83 06/29/24 15:30 O2 Sat by Pulse Oximetry 99 06/29/24 15:30 Pain Scale Pain Intensity 0 - Physical Exam General Appearance: no apparent distress, alert Ears, Nose, Throat Exam: normal ENT inspection Respiratory Exam: normal breath sounds, chest tenderness, respiratory distress, airway intact, wheezing (minimal expiratory wheezing b/l), No crackles/rales, No rhonchi, No stridor Cardiovascular Exam: regular rate/rhythm, normal heart sounds, normal peripheral pulses SpO2: 96 Ordered Tests: Active Orders 24 hr Category Date Time Status CHEST 2 VIEWS (PA AND LAT) Stat Exams 06/29/24 15:52 Taken Respiratory Therapy Assessment DAILY RT 06/29/24 16:13 Active Medication Summary Discontinued Medications Generic Name Dose Route Start Last Admin Trade Name Freq PRN Reason Stop Dose Admin Albuterol/Ipratropium 3 ml 06/29/24 15:52 06/29/24 16:11 Ipratropium/Albuterol Sulfate 3 Ml Ampul.Neb IH 06/29/24 15:53 3 ml STAT ONE Administration Albuterol/Ipratropium Confirm 06/29/24 16:10 Ipratropium/Albuterol Sulfate 3 Ml Ampul.Neb Administered 06/29/24 16:11 Dose 3 ml IH .STK-MED ONE Lab/Rad Data: Laboratory Results 06/29/24 Range/Units 16:10 Influenza Type A Ag NEGATIVE (NEGATIVE) Influenza Type B Ag NEGATIVE (NEGATIVE) RSV (PCR) NEGATIVE (NEGATIVE) SARS-CoV-2 (PCR) NEGATIVE (NEGATIVE) - Progress Progress: improved Air Movement: fair Progress Note: 06/29/24 18:09 improved significantly w/ duoneb treatment will send home w/ prednisone burst and refill albuterol inhaler discharge home complete course of prednisone for 5 days refill on albuterol sent to pharmacy recommend oral hydration with plenty of clear liquids and electrolyte containing fluids return to ED if: develop fevers that do not resolve with tylenol, develop chest pain, develop shortness of breath Blood Culture(s) Obtained: No Antibiotics given: No Counseled pt/family regarding: lab results, diagnosis, need for follow-up, rad results Medical Desision Making - Diagnostic Testing Diagnostic test were ordered, analyzed, and reviewed by me: Yes Radiological Interpretation: Reviewed by me, Teleradiologist Report - Risk of complications Minimal Risk: Minimal risk of morbidity - Departure Departure Disposition: Home Clinical Impression: Cough Qualifiers: Cough type: acute Qualified Code(s): R05.1 - Acute cough Condition: Stable Critical Care Time: No Referrals: HANY RODRIGUEZ MD [Primary Care Provider] - Follow up/PCP as directed Additional Instructions: discharge home complete course of prednisone for 5 days refill on albuterol sent to pharmacy recommend oral hydration with plenty of clear liquids and electrolyte containing fluids return to ED if: develop fevers that do not resolve with tylenol, develop chest pain, develop shortness of breath Prescriptions: Albuterol Sulfate [Albuterol Sulfate Hfa] 8.5 gm IH Q6HPRN PRN 30 Days #1 inhaler PRN Reason: Cough predniSONE [Prednisone] 50 mg PO DAILY 5 Days #5 tablet
[2024-06-29 17:00] LABS: INFLUENZA A NEGATIVE (NEGATIVE); INFLUENZA B NEGATIVE (NEGATIVE); RESPIRATORY SYNCTIAL VIRUS NEGATIVE (NEGATIVE); SARS-CoV-2 Xpert Express NEGATIVE (NEGATIVE)
[2024-06-29 17:30] VITALS: PULSE 58; RESP 18
[2024-06-29 18:05] VITALS: BP 116/66
[2024-06-29 18:15] VITALS: O2SAT 96
--- NOTE | 2024-06-29 20:45 | XRAY ---
Indication: Cough. Comparison: September 26, 2023 PA/lateral chest remains hyperinflated and clear with a few incidental calcified granulomas. Heart not enlarged. Bony thorax intact. No new/acute findings.
== END 2024-06-29 18:21 | disposition home or self-care (01) ==
LOC: ED 15:16
DX: R05.1 Acute cough (principal); M79.10 Myalgia, unspecified site; E78.5 Hyperlipidemia, unspecified; I10 Essential (primary) hypertension; E11.42 Type 2 diabetes mellitus with diabetic polyneuropathy; Z79.4 Long term (current) use of insulin; Z79.84 Long term (current) use of oral hypoglycemic drugs; Z79.52 Long term (current) use of systemic steroids; Z79.899 Other long term (current) drug therapy; Z72.0 Tobacco use
CPT/HCPCS: 0241U; 71046; 94640; 99284; 99283; A9270-GY

== ENCOUNTER 2024-08-04 08:09 | Emergency (ER) | payer MEDICAID, MEDICARE ==
[2024-08-04 08:17] VITALS: TEMP 96.9
--- NOTE | 2024-08-04 08:28 | ERPHSYRPT ---
- History of Present Illness Time Seen by Provider: 08/04/24 08:28 Historian: patient Exam Limitations: no limitations Patient Subjective Stated Complaint: Pt states "My ate pizza day before yesterday and vomited all night and I didn't think it was the pizza so I ate some of it last night and vomited all morning. I also have body aches." Triage Nursing Assessment: Pt presented alert and oriented X 3, skin pwd. PT resting comfortably on the bed. Physician History: The patient presents with nausea and vomiting after eating pizza. Her experienced similar symptoms the night before. She experienced nausea and vomiting after consuming pizza the previous evening, feeling sick throughout the night. She has vomited approximately eight to nine times since then and is unable to retain any food or liquids, including water, as they are expelled shortly after ingestion. No diarrhea, blood in the vomit, a bdominal pain, or chest pain are present. She reports a headache, which she describes as 'banging'. She has a lifelong ostomy, present since , with no recent changes or issues. Timing/Duration: today Activities at Onset: sleep Quality: other (NA) Abdominal Pain Onset Location: other (NA) Pain Radiation: no radiation Severity of Pain-Max: none Severity of Pain-Current: none Modifying Factors: Worsens With: vomiting Associated Symptoms: loss of appetite, nausea, vomiting, No diarrhea Previous symptoms: no prior history Allergies/Adverse Reactions: ketorolac [From Toradol] Allergy (Verified 06/29/24 15:24) latex Allergy (Verified 06/29/24 15:24) losartan Allergy (Verified 06/29/24 15:24) Sulfa (Sulfonamide Antibiotics) Allergy (Verified 06/29/24 15:24) sulfamethoxazole [From Bactrim] Allergy (Verified 06/29/24 15:24) trimethoprim [From Bactrim] Allergy (Verified 06/29/24 15:24) Home Medications: Hydrochlorothiazide 25 mg [hydroDIURIL 25 MG] 25 mg PO DAILY 02/23/22 [History] Atorvastatin Calcium [Lipitor 40Mg] 40 mg PO DAILY 02/27/22 [History] Empagliflozin [Jardiance] 10 mg PO DAILY 09/17/22 [History] Gabapentin 800 mg PO QID 05/18/23 [History] Insulin Glargine,Hum.rec.anlog [Lantus] 100 unit SQ 18 04/10/24 [History] Hx Tetanus, Diphtheria Vaccination/Date Given: Yes Hx Influenza Vaccination/Date Given: Yes Hx Pneumococcal Vaccination/Date Given: No Immunizations Up to Date: No Travel Risk - International Travel Have you traveled outside of the country in past 3 weeks: No - Emerging Infectious Disease Are you exhibiting symptoms associated with any current EIDs: Yes Symptoms: Headaches/Body Aches/, Vomitting - Review of Systems All Other Systems: Reviewed and Negative - Past Medical History Pertinent Past Medical History: Yes Neurological History: Peripheral Neuropathy ENT History: No Pertinent History Cardiac History: High Cholesterol, Hypertension Respiratory History: No Pertinent History Endocrine Medical History: Diabetes Type II Musculoskeletal History: No Pertinent History GI Medical History: No Pertinent History History: Other Psycho-Social History: No Pertinent History Female Reproductive Disorders: Ovarian Cancer Other Medical History: colostomy from , right ovarian CA - Past Surgical History Past Surgical History: Yes Gastrointestinal: Other Female Surgical History: Hysterectomy Other Surgical History: colostomy, right ovary removed - Female History Hx Last Menstrual Period: partial hysterectomy Hx Now: No - Social History Smoking Status: Current every day smoker How long have you smoked: since 14yo Exposure to second hand smoke: Yes Drug Use: marijuana Patient Lives Alone: No - Social Determinants of Health Will the patient participate in the screening: Declined to provide - Nursing Vital Signs Nursing Vital Signs: Initial Vital Signs Temperature 96.9 F 08/04/24 08:10 Pulse Rate 83 08/04/24 08:10 Respiratory Rate 20 08/04/24 08:10 Blood Pressure 155/96 08/04/24 08:10 O2 Sat by Pulse Oximetry 98 08/04/24 08:10 Pain Scale Pain Intensity 6 - Physical Exam General Appearance: no apparent distress Eye Exam: eyes nml inspection Ears, Nose, Throat Exam: normal ENT inspection Neck Exam: normal inspection, supple, full range of motion Respiratory Exam: normal breath sounds, lungs clear, airway intact, No respiratory distress Cardiovascular Exam: regular rate/rhythm, capillary refill <2 sec Gastrointestinal/Abdomen Exam: soft, other (ostomy in place), No tenderness, No distention, No mass, No guarding, No rebound Neurologic Exam: alert, oriented x 3, cooperative Skin Exam: normal color, warm, dry, No rash SpO2 Interpretation: normal SpO2: 98 O2 Delivery: Room Air Ordered Tests: Active Orders 24 hr Category Date Time Status PO Fluid Challenge STAT Care 08/04/24 08:34 Active CBC W DIFF Stat Lab 08/04/24 08:30 Completed CMP Stat Lab 08/04/24 08:30 Completed Medication Summary Discontinued Medications Generic Name Dose Route Start Last Admin Trade Name Rafael PRN Reason Stop Dose Admin Acetaminophen 975 mg 08/04/24 08:29 08/04/24 08:34 Acetaminophen 325 Mg Tablet PO 08/04/24 08:30 975 mg STAT STA Administration Acetaminophen Confirm 08/04/24 08:33 Acetaminophen 325 Mg Tablet Administered 08/04/24 08:34 Dose 975 mg .ROUTE .STK-MED ONE Acetaminophen Confirm 08/04/24 08:39 Acetaminophen 325 Mg Tablet Administered 08/04/24 08:40 Dose 325 mg .ROUTE .STK-MED ONE Ondansetron HCl 8 mg 08/04/24 08:28 08/04/24 08:31 Zofran 4 Mg/Udtablet Orally Disintegrating PO 08/04/24 08:29 Not Given STAT ONE Ondansetron HCl 8 mg 08/04/24 08:31 08/04/24 08:34 Ondansetron Hcl 4 Mg/2 Ml Vial IV 08/04/24 08:32 8 mg STAT ONE Administration Ondansetron HCl Confirm 08/04/24 08:33 Ondansetron Hcl 4 Mg/2 Ml Vial Administered 08/04/24 08:34 Dose 4 mg .ROUTE .STK-MED ONE Ondansetron HCl Confirm 08/04/24 08:35 Ondansetron Hcl 4 Mg/2 Ml Vial Administered 08/04/24 08:36 Dose 4 mg .ROUTE .STK-MED ONE Lab/Rad Data: Laboratory Result Diagrams 08/04/24 08:30 08/04/24 08:30 Laboratory Results 08/04/24 08/04/24 08/04/24 Range/Units 08:30 08:30 08:30 WBC 14.9 H (3.98-10.04) x10^3/uL RBC 5.37 H (3.93-5.22) x10^6/uL Hgb 15.6 (11.2-15.7) g/dL Hct 47.2 H (34.1-44.9) % MCV 87.9 (79.4-94.8) fL MCH 29.1 (25.6-32.2) pg MCHC 33.1 (32.2-35.5) g/dL RDW 13.6 (11.7-14.4) % Plt Count 212 (182-369) x10^3/uL MPV 10.2 (9.4-12.3) fL Gran % 92.5 H (34.0-71.1) % Immature Gran % (Auto) 0.4 (0.001-0.429) % Nucleat RBC Rel Count 0.0 (0.00-0.2) % Eos # (Auto) 0.02 L (0.04-0.36) x10^3/uL Immature Gran # (Auto) 0.06 H (0.001-0.031) x10^3u/L Absolute Lymphs (auto) 0.60 L (1.18-3.74) x10^3/uL Absolute Monos (auto) 0.42 (0.24-0.86) x10^3/uL Absolute Nucleated RBC 0.00 (0.00-0.012) x10^3u/L Lymphocytes % 4.0 L (19.3-51.7) % Monocytes % 2.8 L (4.7-12.5) % Eosinophils % 0.1 L (0.7-5.8) % Basophils % 0.2 (0.1-1.2) % Absolute Granulocytes 13.73 H (1.56-6.13) x10^3/uL Basophils # 0.03 (0.01-0.08) x10^3/uL Sodium 136 (135-145) mmol/L Potassium 3.5 (3.5-5.1) mmol/L Chloride 103 (98-107) mmol/L Carbon Dioxide 23 (22-30) mmol/L Anion Gap 13.5 (5-15) MEQ/L BUN 19 H (7-17) mg/dL Creatinine 0.55 (0.52-1.04) mg/dL Estimated GFR 116.6 ML/MIN Glucose 186 H (74-106) mg/dL Hemoglobin A1c 9.34 H (4.5-6.0) % Calcium 9.1 (8.4-10.2) mg/dL Total Bilirubin 1.50 H (0.2-1.3) mg/dL AST 32 (14-36) U/L ALT 33 (0-35) U/L Alkaline Phosphatase 92 (38-126) U/L Serum Total Protein 6.9 (6.3-8.2) g/dL Albumin 4.1 (3.5-5.0) g/dL - Progress Progress: improved Progress Note: Gastroenteritis Acute onset of nausea and vomiting following pizza consumption, with similar symptoms in their the previous night. No diarrhea or abdominal pain. Differential diagnosis includes foodborne illness or viral gastroenteritis, given current GI bug prevalence. Unable to retain oral intake, including water. 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 WNC 14.9, Total bili 1.5, A1c 9.34. No evidence of dehydration on labs today, will dc home with zofran as needed. Recommend increased PO hydration. Counseled pt/family regarding: lab results, diagnosis, need for follow-up Medical Desision Making - Diagnostic Testing Diagnostic test were ordered, analyzed, and reviewed by me: Yes Radiological Interpretation: Interpreted by me - Risk of complications The pt has a mod risk of morbidity or mortality based on: Need for prescription drug management - Departure Departure Disposition: Home Clinical Impression: Diabetes type 2, uncontrolled, Viral gastroenteritis Condition: Good Critical Care Time: No Referrals: HANY RODRIGUEZ MD [Primary Care Provider] - Follow up/PCP as directed Prescriptions: ondansetron HCL [Ondansetron HCl] 8 mg PO TID PRN 7 Days #21 tablet PRN Reason: Nausea/Vomiting
[2024-08-04] MEDS: ZOFRAN ODT 4 MG PO ONE (08:31)
[2024-08-04] MEDS ORDERED: TYLENOL 325 MG ONE ×2 (08:33→08:39)
[2024-08-04] MEDS ORDERED: Zofran 4 MG/2 ML VIAL ONE ×2 (08:33→08:35)
[2024-08-04] MEDS: Zofran 4 MG/2 ML VIAL IV ONE (08:34)
[2024-08-04] MEDS: TYLENOL 325 MG PO STA (08:34)
[2024-08-04 09:07] LABS: ALBUMIN 4.1 g/dL (3.5-5.0); ANION GAP 13.5 MEQ/L (5-15); Absolute Neutrophil Ct (ANC) 13.73 x10^3/uL (1.56-6.13); BASOPHIL % 0.2 % (0.1-1.2); BILIRUBIN,TOTAL 1.5 mg/dL (0.2-1.3); Basophil (Absolute #) 0.03 x10^3/uL (0.01-0.08); Calcium 9.1 mg/dL (8.4-10.2); Creatinine 1 0.55 mg/dL (0.52-1.04); EST GLOMERULAR FILTRATION RATE 116.6 ML/MIN; Eosinophil % 0.1 % (0.7-5.8); Eosinophil (Absolute #) 0.02 x10^3/uL (0.04-0.36); Hematocrit 47.2 % (34.1-44.9); Hemoglobin 15.6 g/dL (11.2-15.7); IMMATURE GRAN # 0.06 x10^3u/L (0.001-0.031); IMMATURE GRAN % 0.4 % (0.001-0.429); Mean Cell Volume 87.9 fL (79.4-94.8); Mean Corpuscular Hemoglobin 29.1 pg (25.6-32.2); Mean Corpuscular Hgb Concent. 33.1 g/dL (32.2-35.5); Mean Platelet Volume 10.2 fL (9.4-12.3); Monocyte (Absolute #) 0.42 x10^3/uL (0.24-0.86); Monocytes % 2.8 % (4.7-12.5); Neutrophil % 92.5 % (34.0-71.1); Platelet Count 212 x10^3/uL (182-369); Potassium 3.5 mmol/L (3.5-5.1); Red Blood Count 5.37 x10^6/uL (3.93-5.22); Red Cell Distribution Width 13.6 % (11.7-14.4); Total Protein 6.9 g/dL (6.3-8.2); White Blood Count 14.9 x10^3/uL (3.98-10.04)
[2024-08-04 09:25] LABS: INFLUENZA A NEGATIVE (NEGATIVE); INFLUENZA B NEGATIVE (NEGATIVE); RESPIRATORY SYNCTIAL VIRUS NEGATIVE (NEGATIVE); SARS-CoV-2 Xpert Express NEGATIVE (NEGATIVE)
[2024-08-04 09:47] VITALS: RESP 18
[2024-08-04 09:55] VITALS: BP 136/73; PULSE 73; O2SAT 97
== END 2024-08-04 10:04 | disposition home or self-care (01) ==
LOC: ED 08:09
DX: A08.4 Viral intestinal infection, unspecified (principal); R11.2 Nausea with vomiting, unspecified; R51.9 Headache, unspecified; E11.65 Type 2 diabetes mellitus with hyperglycemia
CPT/HCPCS: 0241U; 36415; 80053; 83036; 85025; 96374; 99283; 99284; J2405; A9270-GY

== ENCOUNTER 2024-10-20 17:21 | Emergency (ER) | payer MEDICAID ==
[2024-10-20 17:38] VITALS: TEMP 98.6
[2024-10-20 17:47] LABS: Appearance Clear (Clear); Bacteria None Seen /HPF (None Seen); Bilirubin Negative (Negative); Blood Moderate (Negative); Epithelial Cells None Seen /HPF (None Seen); Glucose, Urine >=1000 mg/dL (Negative); Hyaline Casts NONE SEEN /LPF (0-2); Ketones 40 (Negative); Leukocyte Esterase Trace (Negative); Nitrite Negative (Negative); Ph 5.5 (4.6-8.0); Protein,Urine Dip 30 (Negative); Specific Gravity >=1.030 (1.005-1.030); Urobilinogen 0.2 mg/dL (0.2); WBC 51-100 /HPF (0-5)
[2024-10-20 18:00] LABS: Absolute Neutrophil Ct (ANC) 7.72 x10^3/uL (1.56-6.13); BASOPHIL % 0.2 % (0.1-1.2); Basophil (Absolute #) 0.02 x10^3/uL (0.01-0.08); Eosinophil % 0.1 % (0.7-5.8); Eosinophil (Absolute #) 0.01 x10^3/uL (0.04-0.36); Hematocrit 44.6 % (34.1-44.9); Hemoglobin 15.1 g/dL (11.2-15.7); IMMATURE GRAN # 0.03 x10^3u/L (0.001-0.031); IMMATURE GRAN % 0.3 % (0.001-0.429); Lymphocyte (Absolute #) 1.34 x10^3/uL (1.18-3.74); Lymphocytes % 13.2 % (19.3-51.7); Mean Cell Volume 85.4 fL (79.4-94.8); Mean Corpuscular Hemoglobin 28.9 pg (25.6-32.2); Mean Corpuscular Hgb Concent. 33.9 g/dL (32.2-35.5); Mean Platelet Volume 9.6 fL (9.4-12.3); Monocyte (Absolute #) 1.01 x10^3/uL (0.24-0.86); Neutrophil % 76.2 % (34.0-71.1); Platelet Count 151 x10^3/uL (182-369); Red Blood Count 5.22 x10^6/uL (3.93-5.22); Red Cell Distribution Width 13.3 % (11.7-14.4); White Blood Count 10.1 x10^3/uL (3.98-10.04)
--- NOTE | 2024-10-20 18:02 | ERPHSYRPT ---
- History of Present Illness Time Seen by Provider: 10/20/24 18:00 Source: patient Exam Limitations: no limitations Patient Subjective Stated Complaint: pt here because she states possible had a UTI, she has it hurts to void for over a month has had her urine checked twice, she is positve for flu b Triage Nursing Assessment: pt alert, walked in, resp easy, skin w/d/p. mask in place, occ cough, moves all ext well Physician History: pt here because she states possible had a UTI, she has it hurts to void for over a month has had her urine checked twice, she is positve for flu b Timing/Duration: day(s) (2-3 days) Severity: moderate Associated Symptoms: other (burning pain while urination), No nausea, No vomiting, No abdominal pain, No shortness of breath Allergies/Adverse Reactions: ketorolac [From Toradol] Allergy (Verified 10/20/24 17:33) latex Allergy (Verified 10/20/24 17:33) losartan Allergy (Verified 10/20/24 17:33) Sulfa (Sulfonamide Antibiotics) Allergy (Verified 10/20/24 17:33) sulfamethoxazole [From Bactrim] Allergy (Verified 10/20/24 17:33) trimethoprim [From Bactrim] Allergy (Verified 10/20/24 17:33) Home Medications: Hydrochlorothiazide 25 mg [hydroDIURIL 25 MG] 25 mg PO DAILY 02/23/22 [History] Atorvastatin Calcium [Lipitor 40Mg] 40 mg PO DAILY 02/27/22 [History] Empagliflozin [Jardiance] 10 mg PO DAILY 09/17/22 [History] Gabapentin 800 mg PO QID 05/18/23 [History] Insulin Glargine,Hum.rec.anlog [Lantus] 100 unit SQ 18 04/10/24 [History] Aspirin EC 81 mg [Ecotrin 81 mg] 1 ea DAILY 10/20/24 [History] Doxycycline Hyclate 100 mg [Vibramycin 100 MG] 100 mg PO BID 10/20/24 [History] Oseltamivir 75 mg [Tamiflu 75MG Capsule] 75 mg PO BID 10/20/24 [History] Ropinirole HCl 0.5 mg [Requip 0.5 MG] 1 ea TID 10/20/24 [History] Hx Tetanus, Diphtheria Vaccination/Date Given: Yes Hx Influenza Vaccination/Date Given: Yes Hx Pneumococcal Vaccination/Date Given: No Immunizations Up to Date: Yes Travel Risk - International Travel Have you traveled outside of the country in past 3 weeks: No - Emerging Infectious Disease Are you exhibiting symptoms associated with any current EIDs: Yes Symptoms: Headaches/Body Aches/, Vomitting - Review of Systems Constitutional: No Fever, No Chills Eyes: No Symptoms Ears, Nose, & Throat: No Symptoms Respiratory: No Cough, No Dyspnea Cardiac: No Chest Pain, No Edema, No Syncope Abdominal/Gastrointestinal: No Abdominal Pain, No Nausea, No Vomiting, No Diarrhea Genitourinary Symptoms: Dysuria, Urgency Musculoskeletal: No Back Pain, No Neck Pain Skin: No Rash Neurological: No Dizziness, No Focal Weakness, No Sensory Changes Psychological: No Symptoms Endocrine: No Symptoms All Other Systems: Reviewed and Negative - Past Medical History Pertinent Past Medical History: Yes Neurological History: Peripheral Neuropathy ENT History: No Pertinent History Cardiac History: High Cholesterol, Hypertension Respiratory History: No Pertinent History Endocrine Medical History: Diabetes Type II Musculoskeletal History: No Pertinent History GI Medical History: No Pertinent History History: Other Psycho-Social History: Anxiety, Depression Female Reproductive Disorders: Ovarian Cancer Other Medical History: colostomy from , right ovarian CA - Past Surgical History Past Surgical History: Yes Gastrointestinal: Other Female Surgical History: Hysterectomy Other Surgical History: colostomy, right ovary removed - Female History Hx Last Menstrual Period: partial hysterectomy Hx Now: No - Social History Smoking Status: Current every day smoker How long have you smoked: since 14yo Exposure to second hand smoke: Yes Drug Use: marijuana - Social Determinants of Health Will the patient participate in the screening: Declined to provide - Nursing Vital Signs Nursing Vital Signs: Initial Vital Signs Temperature 98.6 F 10/20/24 17:36 Pulse Rate 77 10/20/24 17:36 Respiratory Rate 20 10/20/24 17:36 Blood Pressure 131/83 10/20/24 17:36 O2 Sat by Pulse Oximetry 97 10/20/24 17:36 Pain Scale Pain Intensity 4 - Physical Exam General Appearance: no apparent distress, alert Eye Exam: PERRL/EOMI, eyes nml inspection Ears, Nose, Throat Exam: normal ENT inspection, TMs normal, pharynx normal, moist mucous membranes Neck Exam: normal inspection, non-tender, supple, full range of motion Respiratory Exam: normal breath sounds, lungs clear, No respiratory distress Cardiovascular Exam: regular rate/rhythm, normal heart sounds, normal peripheral pulses Gastrointestinal/Abdomen Exam: soft, normal bowel sounds, No tenderness, No mass Back Exam: normal inspection, normal range of motion, No CVA tenderness, No vert ebral tenderness Extremity Exam: normal inspection, normal range of motion, pelvis stable Neurologic Exam: alert, oriented x 3, cooperative, normal mood/affect, nml cerebellar function, nml station & gait, sensation nml, No motor deficits Skin Exam: normal color, warm, dry, No rash Lymphatic Exam: No adenopathy SpO2: 97 - Course Nursing assessment & vital signs reviewed: Yes Ordered Tests: Active Orders 24 hr Category Date Time Status CBC W DIFF Stat Lab 10/20/24 17:57 Completed CMP Stat Lab 10/20/24 17:57 Completed CULTURE,URINE Stat Lab 10/20/24 17:37 Received UA W/RFX UR CULTURE Stat Lab 10/20/24 17:37 Completed Medication Summary Discontinued Medications Generic Name Dose Route Start Last Admin Trade Name Freq PRN Reason Stop Dose Admin Ceftriaxone Sodium 1,000 mg 10/20/24 18:30 Ceftriaxone Sodium 1000 Mg Inj Vial IM 10/20/24 18:31 STAT ONE Lab/Rad Data: Laboratory Result Diagrams 10/20/24 17:57 10/20/24 17:57 Laboratory Results 10/20/24 10/20/24 10/20/24 Range/Units 17:57 17:57 17:37 WBC 10.1 H (3.98-10.04) x10^3/uL RBC 5.22 (3.93-5.22) x10^6/uL Hgb 15.1 (11.2-15.7) g/dL Hct 44.6 (34.1-44.9) % MCV 85.4 (79.4-94.8) fL MCH 28.9 (25.6-32.2) pg MCHC 33.9 (32.2-35.5) g/dL RDW 13.3 (11.7-14.4) % Plt Count 151 L (182-369) x10^3/uL MPV 9.6 (9.4-12.3) fL Gran % 76.2 H (34.0-71.1) % Immature Gran % (Auto) 0.3 (0.001-0.429) % Nucleat RBC Rel Count 0.0 (0.00-0.2) % Eos # (Auto) 0.01 L (0.04-0.36) x10^3/uL Immature Gran # (Auto) 0.03 (0.001-0.031) x10^3u/L Absolute Lymphs (auto) 1.34 (1.18-3.74) x10^3/uL Absolute Monos (auto) 1.01 H (0.24-0.86) x10^3/uL Absolute Nucleated RBC 0.00 (0.00-0.012) x10^3u/L Lymphocytes % 13.2 L (19.3-51.7) % Monocytes % 10.0 (4.7-12.5) % Eosinophils % 0.1 L (0.7-5.8) % Basophils % 0.2 (0.1-1.2) % Absolute Granulocytes 7.72 H (1.56-6.13) x10^3/uL Basophils # 0.02 (0.01-0.08) x10^3/uL Sodium 137 (135-145) mmol/L Potassium 3.1 L (3.5-5.1) mmol/L Chloride 98 (98-107) mmol/L Carbon Dioxide 25 (22-30) mmol/L Anion Gap 17.3 H (5-15) MEQ/L BUN 21 H (7-17) mg/dL Creatinine 0.69 (0.52-1.04) mg/dL Estimated GFR 110.4 ML/MIN Glucose 196 H (74-106) mg/dL Calcium 8.8 (8.4-10.2) mg/dL Total Bilirubin 1.00 (0.2-1.3) mg/dL AST 34 (14-36) U/L ALT 35 (0-35) U/L Alkaline Phosphatase 82 (38-126) U/L Serum Total Protein 7.1 (6.3-8.2) g/dL Albumin 4.3 (3.5-5.0) g/dL Urine Color Yellow (Yellow) Urine Appearance Clear (Clear) Urine pH 5.5 (4.6-8.0) Ur Specific [place] >=1.030 A (1.005-1.030) Urine Protein 30 (Negative) Urine Glucose (UA) >=1000 A (Negative) mg/dL Urine Ketones 40 A (Negative) Urine Blood Moderate A (Negative) Urine Nitrite Negative (Negative) Urine Bilirubin Negative (Negative) Urine Urobilinogen 0.2 (0.2) mg/dL Ur Leukocyte Esterase Trace A (Negative) U Hyaline Cast (Auto) NONE SEEN (0-2) /LPF Urine Microscopic RBC 11-20 A (0-5) /HPF Urine Microscopic WBC 51-100 A (0-5) /HPF Ur Epithelial Cells None Seen (None Seen) /HPF Urine Bacteria None Seen (None Seen) /HPF Urine Culture Reflexed YES (NO) - Progress Progress: unchanged Counseled pt/family regarding: lab results, diagnosis, need for follow-up Medical Desision Making - Diagnostic Testing Diagnostic test were ordered, analyzed, and reviewed by me: Yes - Risk of complications Low Risk: Low risk of morbidity from additional dx testing or treatment - Departure Departure Disposition: Home Clinical Impression: Cystitis, Hematuria, microscopic Diabetes type 2, uncontrolled Qualifiers: Glycemic state: with hyperglycemia Qualified Code(s): E11.65 - Type 2 diabetes mellitus with hyperglycemia Condition: Stable Critical Care Time: No Referrals: HANY RODRIGUEZ MD [Primary Care Provider] - Follow up/PCP as directed Instructions: Urinary Tract Infection, Adult (DC) Additional Instructions: Discharge/Care Plan BUBBA RASMUSSEN was seen on 10/20/24 in the Emergency Room. The patient was counseled regarding Diagnosis,Lab results, Imaging studies, need for follow up and when to return to the Emergency Room. Prescriptions given: Discharge Note I have spoken with the patient and/or caregivers. I have explained the patient's condition, diagnosis and treatment plan based on the information available to me at this time. I have answered the patient's and/or caregiver's questions and addressed any concerns. The patient and/or caregivers have as good understanding of the patient's diagnosis, condition and treatment plan as can be expected at this point. The vital signs have been stable. The patient's condition is stable and appropriate for discharge from the emergency department. The patient will pursue further outpatient evaluation with the primary care physician or other designated or consulting physician as outlined in the disc harge instructions. The patient and/or caregivers are agreeable to this plan of care and follow-up instructions have been explained in detail. The patient and/or caregivers have received these instruction. The patient/and or caregivers are aware that any significant change in condition or worsening of symptoms should prompt an immediate return to this or the closest emergency department or call 911. BUBBA RASMUSSEN was seen on 10/20/24 n the Emergency Room. At that time you were treated for an emergent condition, during your visit Laboratory, Radiology and/or other procedures may have been ordered. It is very important that you follow-up with your Primary Care Physician HANY RODRIGUEZ within the next 24-48 hours to review your Emergency Room visit and the final results of testing that was ordered. Some test results such as Urine Cultures, Blood Cultures, and other cultures if ordered will not be finalized for 24-48 hours. If you do not have a Primary Care Provider please call the medical records department at [phone] ext [phone] to obtain a copy of your results or you may sign into our patient portal to obtain these results by visiting us @ [email or web address] and completing the following steps: 1. Click on the Patient Portal link 2. Click the Patient Self Enrollment Link to complete the enrollment form and entering your 3. Once the enrollment form is completed you will receive an email with a temporary ID and password at the email address you provided. 4. Next choose a user name and password. Your user name must be at least 4 characters long and your password must be at least 4 characters long. 5. Choose a security question from the list and provide your answer to the question. If you already have signed into the Health Portal you may access your Health Care Information 27/02 by the following steps: 1. Login to our website @ [email or web address] 2. Enter your original user name and password. FAQS The [facility] Health Portal is an online tool that contains your Lab Results, Radiology Reports, Visit History, Discharge Instructions and Health Summary Lab and Radiology Results will not be available for 72 hours on the portal. The Portal is a secure site, passwords are encryted and URLs are re-written so they cannot be copied and pasted. You and authorized family members are the only ones who can access your Portal. Also there is a timeout feature that protects your information if you leave the Portal page open. If you have technical difficulty please use the Contact Us link on the page this will allow you to submit any questions you have regarding the Portal or you may contact the Medical Record Department at [phone] ext [phone]. Prescriptions: Amoxicillin 500 mg Cap [Amoxil 500 mg] 500 mg PO TID #30 cap
[2024-10-20 18:13] LABS: ALBUMIN 4.3 g/dL (3.5-5.0); ANION GAP 17.3 MEQ/L (5-15); Calcium 8.8 mg/dL (8.4-10.2); Creatinine 1 0.69 mg/dL (0.52-1.04); EST GLOMERULAR FILTRATION RATE 110.4 ML/MIN; Potassium 3.1 mmol/L (3.5-5.1); Total Protein 7.1 g/dL (6.3-8.2)
[2024-10-20 18:33] VITALS: O2SAT 97
[2024-10-20] MEDS ORDERED: Rocephin 1000 MG INJ ONE (18:39)
[2024-10-20] MEDS ORDERED: XYLOCAINE 1% HCL 20 ML MDV ONE (18:39)
[2024-10-20] MEDS: Rocephin 1000 MG INJ IM ONE (18:44)
[2024-10-20 19:09] VITALS: BP 134/77; PULSE 70; RESP 18
== END 2024-10-20 19:10 | disposition home or self-care (01) ==
LOC: ED 17:21
DX: N30.91 Cystitis, unspecified with hematuria (principal); E11.65 Type 2 diabetes mellitus with hyperglycemia; R30.0 Dysuria; E11.42 Type 2 diabetes mellitus with diabetic polyneuropathy; I10 Essential (primary) hypertension; E78.5 Hyperlipidemia, unspecified; Z79.84 Long term (current) use of oral hypoglycemic drugs; Z79.4 Long term (current) use of insulin; Z79.899 Other long term (current) drug therapy; Z72.0 Tobacco use
CPT/HCPCS: 36415; 80053; 81001; 85025; 87086; 96372; 99283; 99284; J0696